=== PATIENT | female | born 1980 | race Two or more races ===

== ENCOUNTER 2016-12-30 19:21 | Emergency (ER) | payer OTHER ==
[~2016-12-30] VITALS: Ht 167.6 cm; Wt 84.4 kg
[~2016-12-30 19:21] MED LIST: ALPRAZOLAM0.25 MG ORAL; IBUPROFEN600 MG ORAL; KEFLEX500 MG ORAL; NITROFURANTOIN100 M2 ORAL; NKM; NORCO 5-325 TA1 EACH ORAL; NORCO1 EA ORAL; SERTRALINE HCL50 MG ORAL; VISTARIL25 M1 PO; WELLBUTRIN75 MG ORAL; XANAX0.25 MG ORAL
[2016-12-30] MEDS ORDERED: Ketorolac 30mg Inj IV ONE (20:15)
--- NOTE | 2016-12-30 20:51 | Emergency Room Report ---
History of Present Illness General Chief Complaint: Back Pain-No Injury Source: Patient Present Illness HPI Patient complains of upper back and chest pain that began on Tuesday. It's been intermittent. And positional. She believes it may have started when she pulled a pillow away from her daughter. She is taking many medications in the one that helped her the most was Advil. She felt worse with Tramadol. She is also complaining about pain in her left heel that radiates up into her calf. In addition to that she's complaining about left ear pain. The rest of her family and does have earaches and ear infections. She has a sore throat. The patient suffers from fibromyalgia. No dysuria. LNMP normal. No dyspnea. She's felt feverish, but no documented fever. No rashes. Allergies: Coded Allergies: No Known Allergies (Unverified , 10/15/12) Patient History Past Medical History: see triage record Social History: Denies: smoking Social History Narrative with daughter Last Menstrual Period: Dec Reviewed Nursing Documentation: PMH: Agreed, PSxH: Agreed Nursing Documentation-PMH Hx Cardiac Problems: No - fibromyalgia Hx Pacemaker: No Hx Asthma: No Hx COPD: No Hx Diabetes: No Hx Cancer: No Hx Gastrointestinal Problems: Yes - Gall stones Hx Dialysis: No Hx Cerebrovascular Accident: No Hx Seizures: No Review of Systems All Other Systems: negative except mentioned in HPI Physical Exam Vital Signs Date Time Temp Pulse Resp B/P Pulse Ox O2 Delivery O2 Flow Rate FiO2 12/30/16 19:25 98.4 70 16 120/79 99 Room Air Sp02 EP Interpretation: reviewed, normal General Appearance: well appearing, no apparent distress, GCS 15 Head: normocephalic Eyes: bilateral eye PERRL, bilateral eye normal inspection ENT: normal pharynx, TMs + canals normal, moist mucus membranes Neck: full range of motion, supple, no meningismus Respiratory: lungs clear, normal breath sounds, other - some chest wall tenderness Cardiovascular #1: regular rate, rhythm, no edema, no murmur Cardiovascular #2: 2+ radial (R) Gastrointestinal: normal inspection, normal bowel sounds, non tender, no mass, non-distended Musculoskeletal: back normal, gait/station normal, normal range of motion, no calf tenderness, Florence's Sign negative Neurologic: alert, oriented x3, grossly normal Psychiatric: mood/affect normal Skin: normal inspection, warm/dry Medical Decision Making Diagnostic Impression: Primary Impression: Chest pain Qualified Codes: R07.9 - Chest pain, unspecified Additional Impressions: Fibromyalgia Viral syndrome ER Course Patient presents with chest pain and URI sy. DDx: viral syndrome, pleurisy, costochondritis, PE, bacterial infection, exacerbation of fibromyalgia amongst others. Evaluation with labs, EKG, CXR. Treatment with toradol. Vital signs against PE. Labs remarkable for normal WBC and negative troponin. CXR no CP disease. EKG normal. No evidence of bacterial infection. Improved with treatment. Patient stable for outpatient observation and treatment. Laboratory Tests Test 12/30/16 19:35 12/30/16 20:30 Urine HCG, Qualitative Negative White Blood Count 7.9 K/UL (4.8-10.8) Red Blood Count 3.97 M/UL (4.20-5.40) L Hemoglobin 11.8 G/DL (12.0-16.0) L Hematocrit 37.3 % (37.0-47.0) Mean Corpuscular Volume 94 FL (80-99) Mean Corpuscular Hemoglobin 29.7 PG (27.0-31.0) Mean Corpuscular Hemoglobin Concent 31.7 G/DL (32.0-36.0) L Red Cell Distribution Width 13.2 % (11.6-14.8) Platelet Count 204 K/UL (150-450) Mean Platelet Volume 6.9 FL (6.5-10.1) Neutrophils (%) (Auto) 41.1 % (45.0-75.0) L Lymphocytes (%) (Auto) 46.3 % (20.0-45.0) H Monocytes (%) (Auto) 9.0 % (1.0-10.0) Eosinophils (%) (Auto) 2.1 % (0.0-3.0) Basophils (%) (Auto) 1.5 % (0.0-2.0) Sodium Level 140 mEQ/L (135-145) Potassium Level 3.8 mEQ/L (3.4-4.9) Chloride Level 101 mEQ/L (98-107) Carbon Dioxide Level 26 mEQ/L (20-30) Anion Gap 13 (5-15) Blood Urea Nitrogen 13 mg/dL (7-23) Creatinine 0.8 mg/dL (0.5-0.9) Estimate Glomerular Filtration Rate > 60 mL/min (>60) Glucose Level 73 mg/dL (74-106) L Calcium Level 9.1 mg/dL (8.6-10.2) Total Bilirubin < 0.2 mg/dL (0.0-1.2) Aspartate Amino Transferase (AST) 20 U/L (5-40) Alanine Aminotransferase (ALT) 20 U/L (3-33) Alkaline Phosphatase 75 U/L (35-104) Total Creatine Kinase 107 U/L (26-140) Troponin I < 0.30 ng/mL (<=0.30) Total Protein 7.0 g/dL (6.6-8.7) Albumin 4.2 g/dL (3.5-5.2) Globulin 2.8 g/dL Albumin/Globulin Ratio 1.5 (1.0-2.7) EKG Diagnostic Results Rate: normal Rhythm: NSR ST Segments: no acute changes Rhythm Strip Diag. Results EP Interpretation: yes Rhythm: NSR, no PVC's, no ectopy Chest X-Ray Diagnostic Results EP Interpretation: Yes Findings: no consolidation, no effusion, no pneumothorax, no acute cardiopulmonary disease Number of Views: 2 Last Vital Signs Date Time Temp Pulse Resp B/P Pulse Ox O2 Delivery O2 Flow Rate FiO2 12/30/16 22:35 68 15 109/66 96 Room Air 12/30/16 21:17 98.4 Status: improved Disposition: HOME, SELF-CARE Condition: Improved Scripts Famotidine (PEPCID) 20 Mg Tablet 20 MG ORAL DAILY, #20 TAB 0 Refills Prov: Lemuel Bryant M.D. 12/30/16 Ibuprofen* (MOTRIN*) 600 Mg Tablet 600 MG ORAL Q6H Y for For Pain, #14 TAB Prov: Lemuel Bryant M.D. 12/30/16 Referrals: [facility],REFERRING (PCP) Lemuel Bryant M.D. Dec 30, 2016 20:51
[2016-12-30 21:15] LABS: BASOPHILS % (AUTO) 1.5 % (0.0-2.0); EOSINOPHILS % (AUTO) 2.1 % (0.0-3.0); LYMPHOCYTES % (AUTO) 46.3 % (20.0-45.0); MEAN CORPUSCULAR HEMOGLOBIN 29.7 PG (27.0-31.0); MEAN CORPUSCULAR HGB CONC 31.7 G/DL (32.0-36.0); MEAN CORPUSCULAR VOLUME 94 FL (80-99); MEAN PLATELET VOLUME 6.9 FL (6.5-10.1); NEUTROPHILS % (AUTO) 41.1 % (45.0-75.0); PLATELET COUNT 204 K/UL (150-450); RED BLOOD COUNT 3.97 M/UL (4.20-5.40); RED CELL DISTRIBUTION WIDTH 13.2 % (11.6-14.8); WHITE BLOOD COUNT 7.9 K/UL (4.8-10.8)
[2016-12-30 21:28] LABS: TROPONIN I < 0.30 ng/mL (<=0.30)
[2016-12-30 21:30] LABS: ALANINE AMINOTRANSFERASE 20 U/L (3-33); ALBUMIN/GLOBULIN RATIO 1.5 (1.0-2.7); ANION GAP 13 (5-15); ASPARTATE AMINO TRANSFERASE 20 U/L (5-40); CALCIUM 9.1 mg/dL (8.6-10.2); CARBON DIOXIDE 26 mEQ/L (20-30); CHLORIDE 101 mEQ/L (98-107); CREATININE 0.8 mg/dL (0.5-0.9); GLOMERULAR FILTRATION RATE > 60 mL/min (>60); HEMOLYSIS 4; POTASSIUM 3.8 mEQ/L (3.4-4.9); SODIUM 140 mEQ/L (135-145)
[2016-12-30 21:31] VITALS: BP 101/49
[2016-12-30] MEDS ORDERED: IBUPROFEN600 MG ORAL (22:22)
[2016-12-30] MEDS ORDERED: PEPCID20 MG ORAL (22:22)
[2016-12-30 22:35] VITALS: BP 109/66
[2016-12-31 03:14] LABS: APPEARANCE,URINE CLEAR; KETONES,URINE NEGATIVE (NEGATIVE); LEUKOCYTE ESTERASE ,URINE NEGATIVE (NEGATIVE); NITRITE,URINE NEGATIVE (NEGATIVE); PH,URINE 7 (4.5-8.0); PROTEIN,URINE NEGATIVE (NEGATIVE); UROBILINOGEN,URINE NORMAL MG/DL (0.0-1.0)
--- NOTE | 2016-12-31 12:09 | Diagnostic Imaging Report ---
Indication: Chest pain Technique: PA and lateral views of the chest. Findings: Comparison: 11/14/15 The bones and extra pulmonary soft tissues, cardiomediastinal silhouette, pulmonary vasculature and parenchyma, and pleural surfaces remain unremarkable. IMPRESSION: Negative PA and lateral chest radiographs , unchanged
--- NOTE | 2016-12-31 13:47 | Cardiology Report ---
APPROVED REPORT EKG Measurement Heart [id number] CT [id number] [id number] Normal sinus rhythm Normal ECG
== END 2016-12-30 22:35 | disposition home or self-care (01) ==
LOC: EMR 20:46
DX: R07.9 Chest pain, unspecified (principal); M79.7 Fibromyalgia; B34.9 Viral infection, unspecified
CPT/HCPCS: 36415; 71020; 80053; 81003; 81025; 82550; 84484; 85025; 93005; 96360; 96374; 99284; J1885

== ENCOUNTER 2017-04-16 11:04 | Emergency (ER) | payer OTHER ==
[~2017-04-16] VITALS: Ht 167.6 cm; Wt 83.9 kg
[~2017-04-16 11:04] MED LIST changes: +PEPCID20 MG ORAL
[2017-04-16 11:33] VITALS: BP 116/77
[2017-04-16] MEDS ORDERED: ATIVAN0.5 MG ORAL (12:39)
[2017-04-16 12:48] VITALS: BP 116/77
--- NOTE | 2017-04-16 13:42 | Emergency Room Report ---
History of Present Illness General Chief Complaint: General Complaint Present Illness HPI Patient is a 36-year-old female presented after increased anxiety as well as headache. The patient reportedly had been using amphetamine approximately 2 days prior to arrival. Patient had gradual onset of headache. She reported having some chest discomfort. She has not been vomiting. She had similar symptoms in the past. She reported having tightness in her chest which did not radiate. She previous history of anxiety Allergies: Coded Allergies: No Known Allergies (Unverified , 10/15/12) Patient History Past Medical History: see triage record Reviewed Nursing Documentation: PMH: Agreed, PSxH: Agreed Nursing Documentation-PMH Hx Cardiac Problems: No - fibromyalgia Hx Pacemaker: No Hx Asthma: No Hx COPD: No Hx Diabetes: No Hx Cancer: No Hx Gastrointestinal Problems: Yes - Gall stones Hx Dialysis: No Hx Cerebrovascular Accident: No Hx Seizures: No Review of Systems All Other Systems: negative except mentioned in HPI Physical Exam Vital Signs Date Time Temp Pulse Resp B/P Pulse Ox O2 Delivery O2 Flow Rate FiO2 04/16/17 11:11 98.2 92 20 116/77 98 Room Air Sp02 EP Interpretation: reviewed, normal General Appearance: normal inspection, well appearing, no apparent distress, alert, GCS 15, non-toxic Head: atraumatic ENT: normal ENT inspection, hearing grossly normal, normal voice Neck: normal inspection, full range of motion, supple, no bony tend Respiratory: normal inspection, lungs clear, normal breath sounds, no respiratory distress, no retraction, no wheezing Cardiovascular #1: regular rate, rhythm, no edema Gastrointestinal: normal inspection, normal bowel sounds, non tender, soft, no guarding, no hernia Genitourinary: no CVA tenderness Musculoskeletal: normal inspection, back normal, normal range of motion Neurologic: normal inspection, alert, responsive, speech normal Psychiatric: normal inspection, judgement/insight normal, mood/affect normal Skin: normal inspection, normal color, no rash Medical Decision Making Diagnostic Impression: Primary Impression: Substance abuse Additional Impression: Anxiety ER Course Patient presented for anxiety The differential diagnosis included was not limited to arrhythmia, thyroid storm, sepsis, anemia, myocardial infarction, alcohol withdrawal, stimulant abuse, caffeine overdose among others. EKG interpreted by me showed normal sinus rhythm with a rate of [address] or T wave changes. The patient was given medications for headache. The patient did not appear to have any focal neurologic changes requiring head CT at this time. Patient has previous had negative head CT his for headaches in the past. The patient is advised to follow up with primary care doctor in 1-2 days. Patient is advised to return if any worsening condition or if any changes in status that are concerning. EKG Diagnostic Results Rate: normal Rhythm: NSR ST Segments: no acute changes ASA given to the pt in ED: No Rhythm Strip Diag. Results EP Interpretation: yes Rhythm: NSR, no PVC's, no ectopy Chest X-Ray Diagnostic Results Chest X-Ray Ordered: No Last Vital Signs Date Time Temp Pulse Resp B/P Pulse Ox O2 Delivery O2 Flow Rate FiO2 04/16/17 12:48 98.2 20 116/77 98 Room Air 04/16/17 11:11 92 Status: improved Disposition: HOME, SELF-CARE Condition: Stable Scripts Lorazepam* (ATIVAN*) 0.5 Mg Tablet 0.5 MG ORAL THREE TIMES A DAY, #14 TAB Prov: Yehuda Gaspar 04/16/17 Patient Instructions: Migraine Headache, [id number] Yehuda Gaspar Apr 16, 2017 13:42
[2017-04-16] MEDS ORDERED: Metoclopramide 10mg/2ml Inj IM SCH (14:00)
[2017-04-17] MEDS ORDERED: PHENAZOPYRIDIN200 MG ORAL (13:51)
[2017-04-17] MEDS ORDERED: ZOFRAN ODT4 MG ORAL (13:51)
[2017-04-17] MEDS ORDERED: NITROFURANTOIN100 M2 ORAL (13:51)
== END 2017-04-16 12:48 | disposition home or self-care (01) ==
LOC: EMR 11:27
DX: F15.10 Other stimulant abuse, uncomplicated (principal); F41.9 Anxiety disorder, unspecified; R51 Headache
CPT/HCPCS: 81025; 93005; 96372; 99283; J2765

== ENCOUNTER 2017-04-17 12:21 | Emergency (ER) | payer OTHER ==
[~2017-04-17] VITALS: Ht 167.6 cm; Wt 68.0 kg
[~2017-04-17 12:21] MED LIST changes: +ATIVAN0.5 MG ORAL
[2017-04-17 12:54] VITALS: BP 110/60
[2017-04-17 13:15] LABS: APPEARANCE,URINE SLIGHTLY CLOUDY; KETONES,URINE NEGATIVE (NEGATIVE); LEUKOCYTE ESTERASE ,URINE 3+ (NEGATIVE); NITRITE,URINE NEGATIVE (NEGATIVE); PH,URINE 6 (4.5-8.0); PROTEIN,URINE 2+ (NEGATIVE); UROBILINOGEN,URINE 1 MG/DL (0.0-1.0)
[2017-04-17] MEDS ORDERED: Metoclopramide 10mg/2ml Inj IM ONE (13:15)
[2017-04-17] MEDS ORDERED: Ketorolac 60mg Inj IM ONE (13:15)
--- NOTE | 2017-04-17 13:17 | Emergency Room Report ---
History of Present Illness General Chief Complaint: Headache Present Illness HPI 36-year-old female presents emergency department complaining of 8/10 in severity intermittent headache x2 days. Patient reports progressive onset with nausea and one episode of vomiting. Patient reports history of migraines and previously was on Topamax and was under the care of neurologist performed had imaging which was negative according to patient. Patient states that her headache travels down the left side of the neck into the shoulder. Patient reports tightness and tenderness upon palpation. She also reports episode of burning urination this a.m. denies hematuria, or low back pain. Patient denies fever she reports chills. Patient states that she has taken Tylenol twice with minimal relief. Patient reports recent use of methamphetamine 2 days ago. Patient denies dizziness or visual changes. Denies CP, Palpitations, LOC, AMS, dizziness, Changes in Vision, Sensation, paresthesias, or a sudden severe headache. Allergies: Coded Allergies: No Known Allergies (Unverified , 10/15/12) Patient History Past Medical History: see triage record Past Surgical History: none Pertinent Family History: none Social History: Reports: drug use - Methamphetamine use Now: No Immunizations: UTD Reviewed Nursing Documentation: PMH: Agreed Nursing Documentation-PMH Hx Cardiac Problems: No - fibromyalgia Hx Pacemaker: No Hx Asthma: No Hx COPD: No Hx Diabetes: No Hx Cancer: No Hx Gastrointestinal Problems: Yes - Gall stones Hx Dialysis: No Hx Cerebrovascular Accident: No Hx Seizures: No Review of Systems All Other Systems: negative except mentioned in HPI Physical Exam Vital Signs Date Time Temp Pulse Resp B/P Pulse Ox O2 Delivery O2 Flow Rate FiO2 04/17/17 12:45 98.1 78 16 110/60 98 Room Air Sp02 EP Interpretation: reviewed, normal General Appearance: no apparent distress, alert, GCS 15, non-toxic Head: normocephalic, atraumatic Eyes: bilateral eye PERRL, bilateral eye normal inspection ENT: hearing grossly normal, normal pharynx, no angioedema, normal voice Neck: full range of motion, no meningismus, no bony tend, supple/symm/no masses Respiratory: lungs clear, normal breath sounds, speaking full sentences Cardiovascular #1: regular rate, rhythm, no edema Gastrointestinal: normal bowel sounds, non tender, soft, no guarding, no rebound Rectal: deferred Genitourinary: normal inspection, no CVA tenderness Musculoskeletal: back normal, gait/station normal, normal range of motion, tender - left lateral neck TTP, FROM Neurologic: alert, oriented x3, responsive, motor strength/tone normal, sensory intact, cerebellar normal, normal gait, speech normal, no pronator, other - equal document reviewer strength, no facial droop, no motor weakness Psychiatric: judgement/insight normal, memory normal, mood/affect normal Skin: normal color, no rash, warm/dry, well hydrated Lymphatic: no adenopathy Medical Decision Making PA Attestation Dr. danielle is my supervising Physician whom patient management has been discussed with. Diagnostic Impression: Primary Impression: UTI (urinary tract infection) Qualified Codes: N30.01 - Acute cystitis with hematuria ER Course Pt. presents to the ED c/o headache x 2 days, with one episode of dysuria this am. pt. also reports nausea and one episode of vomiting. pt. has hx of migraines and was previously on topamax. Described as dull constant in nature, with progressive onset 8/10 in severity. Ddx considered but are not limited to migraine, SAH, Psedudo motor Cerebri, Mass lesion, Cluster ESTEBAN, Tension ESTEBAN, Post lumbar puncture ESTEBAN, UTI Vital signs: are WNL, pt. is afebrile H&PE are most consistent with migraine headache, no focal neurological deficit, no evidence to suggest meningitis at this time. ORDERS: - UA: elevated leukocytes, WBC's and few bacteria- consistent with UTI -Hcg:Negative ED INTERVENTIONS: - Reglan IM -IM Toradol DISCHARGE: At this time pt. is stable for d/c to home. Will provide printed patient care instructions, and any necessary prescriptions. Care plan and follow up instructions have been discussed with the patient prior to discharge. Labs Test 04/17/17 12:43 Urine Color Yellow Urine Appearance Slightly cloudy Urine pH 6 (4.5-8.0) Urine Specific [place] 1.020 (1.005-1.035) Urine Protein 2+ (NEGATIVE) Urine Glucose (UA) Negative (NEGATIVE) Urine Ketones Negative (NEGATIVE) Urine Occult Blood 2+ (NEGATIVE) Urine Nitrite Negative (NEGATIVE) Urine Bilirubin Negative (NEGATIVE) Urine Urobilinogen 1 MG/DL (0.0-1.0) Urine Leukocyte Esterase 3+ (NEGATIVE) Urine RBC 5-10 /HPF (0 - 2) Urine WBC 30-40 /HPF (0 - 2) Urine Squamous Epithelial Cells Few /LPF (NONE/OCC) Urine Bacteria Few /HPF (NONE) Urine Mucus Few /LPF (NONE/OCC) Urine HCG, Qualitative Negative Last Vital Signs Date Time Temp Pulse Resp B/P Pulse Ox O2 Delivery O2 Flow Rate FiO2 04/17/17 12:54 98.1 16 110/60 98 Room Air 04/17/17 12:45 78 Disposition: HOME, SELF-CARE Condition: Stable Scripts Ondansetron Odt* (ZOFRAN ODT*) 4 Mg Tab.rapdis 4 MG ORAL Q6H Y for Nausea & Vomiting, #10 TAB Prov: Beverly Up 04/17/17 Phenazopyridine Hcl* (PYRIDIUM*) 200 Mg Tablet 200 MG ORAL THREE TIMES A DAY for 3 Days, #9 TAB 0 Refills Prov: Beverly Up 04/17/17 Nitrofurantoin Monohyd/M-Cryst* (MACROBID 100 MG*) 100 Mg Capsule 100 MG ORAL EVERY 12 HOURS for 5 Days, #10 CAP Prov: Beverly Up 04/17/17 Referrals: [facility],REFERRING (PCP) Patient Instructions: Urinary Tract Infection, [id number] Additional Instructions: Take medications as directed. Follow up with PCP in 3 days. Recommend Neurological evaluation if headache symptoms return. Return sooner to ED if new symptoms occur, or current symptoms become worse. - Please note that this Emergency Department Report was dictated using [employer] reporter technology software, occasionally this can lead to erroneous entry secondary to interpretation by the dictation equipment. Beverly Up Apr 17, 2017 13:17
[2017-04-17 13:25] LABS: BACTERIA,URINE FEW /HPF; MUCUS,URINE FEW /LPF (NONE/OCC); SQUAMOUS EPITHELIAL CELL,UR FEW /LPF (NONE/OCC); WBC,URINE 30-40 /HPF (0 - 2)
[2017-04-17] MEDS ORDERED: ZOFRAN ODT4 MG ORAL (13:51)
[2017-04-17] MEDS ORDERED: PHENAZOPYRIDIN200 MG ORAL (13:51)
[2017-04-17] MEDS ORDERED: NITROFURANTOIN100 M2 ORAL (13:51)
[2017-04-17 14:14] VITALS: BP 109/60
[2017-04-17 14:15] VITALS: BP 110/60
== END 2017-04-17 14:18 | disposition home or self-care (01) ==
LOC: EMR 13:00
DX: N39.0 Urinary tract infection, site not specified (principal); R51 Headache; R11.2 Nausea with vomiting, unspecified; Z86.69 Personal history of other diseases of the nervous system and sense organs; F15.90 Other stimulant use, unspecified, uncomplicated
CPT/HCPCS: 81003; 81025; 87086; 87181; 96372; 99284; J2765

== ENCOUNTER 2017-07-07 10:55 | Emergency (ER) | payer OTHER ==
[~2017-07-07] VITALS: Ht 165.1 cm; Wt 83.5 kg
[~2017-07-07 10:55] MED LIST changes: +PHENAZOPYRIDIN200 MG ORAL; +ZOFRAN ODT4 MG ORAL
[2017-07-07 12:15] VITALS: BP 106/72
--- NOTE | 2017-07-08 06:57 | Emergency Room Report ---
History of Present Illness General Chief Complaint: Pain Source: Patient Present Illness HPI 28-year-old female with past medical history of fibromyalgia presenting with one day of left wrist / elbow numbness and tingling. States that she has numbness and tingling after every time that she bends elbow and rest it on a hard surface. Numbness and tingling loss for about 10-15 minutes. Patient denies any hand or wrist weakness. Patient states that this has happened in the past. Patient denies any headache neck pain blurry vision nausea or vomiting. Patient denies any other trauma. Allergies: Coded Allergies: No Known Allergies (Unverified , 10/15/12) Patient History Past Medical History: see triage record Past Surgical History: none Pertinent Family History: none Last Menstrual Period: 06/26/17 Now: No Reviewed Nursing Documentation: PMH: Agreed, PSxH: Agreed Nursing Documentation-PMH Past Medical History: No History, Except For Hx Cardiac Problems: No - fibromyalgia Hx Pacemaker: No Hx Asthma: No Hx COPD: No Hx Diabetes: No Hx Cancer: No Hx Gastrointestinal Problems: Yes - Gall stones Hx Dialysis: No Hx Cerebrovascular Accident: No Hx Seizures: No Review of Systems All Other Systems: negative except mentioned in HPI Physical Exam Vital Signs Date Time Temp Pulse Resp B/P (MAP) Pulse Ox O2 Delivery O2 Flow Rate FiO2 07/07/17 11:08 98.2 85 16 104/76 98 Room Air Sp02 EP Interpretation: reviewed, normal General Appearance: normal inspection, well appearing, no apparent distress, alert, GCS 15, non-toxic Head: normocephalic, atraumatic Eyes: bilateral eye normal inspection, bilateral eye PERRL, bilateral eye EOMI ENT: normal ENT inspection, normal pharynx, normal voice, moist mucus membranes Neck: normal inspection, full range of motion, supple Respiratory: normal inspection, lungs clear, normal breath sounds, no respiratory distress, no retraction, no wheezing, speaking full sentences, chest symmetrical Cardiovascular #1: normal inspection, regular rate, rhythm, no edema, normal capillary refill Cardiovascular #2: 2+ radial (R), 2+ radial (L) Gastrointestinal: normal inspection, non tender, soft, non-distended, no guarding Musculoskeletal: normal inspection, back normal, normal range of motion, non- tender Neurologic: normal inspection, alert, oriented x3, responsive, field sales manager III-XII nml as tested, motor strength/tone normal, sensory intact, normal gait, speech normal, other - Motor strength is 5 out of 5 all extremities including the left wrist hand and elbow. Patient is able to oppose thumb to all fingers without difficulty. Sensory intact Psychiatric: normal inspection, judgement/insight normal, memory normal Skin: normal inspection, normal color, no rash, warm/dry, well hydrated, normal turgor Medical Decision Making Diagnostic Impression: Primary Impression: Paresthesia and pain of left extremity ER Course 36 yo female with fibromyalgia presenting with one day of left wrist forearm and elbow numbness and tingling DDX: Benign paresthesias, likely secondary to compression of nerves with prolonged position Versus fibromyalgia Not concerned with any intracranial pathology given history and physical exam, and absence of neurological findings Plan: Reassurance ER course: Patient has remained stable during ED stay. Disposition: Patient is to be discharged to home. Patient is instructed to follow up with their primary care doctor within 5 days. Strict return precautions discussed with patient such as fever, chills, worsening/severe pain, nausea, vomiting, headache, which may indicate severe illness. Patient verbalizes understanding and agrees with plan. Please note that this Emergency Department Report was dictated using [employer] dra[employer] technology software, occasionally this can lead to erroneous entry secondary to interpretation by the dictation equipment Last Vital Signs Date Time Temp Pulse Resp B/P (MAP) Pulse Ox O2 Delivery O2 Flow Rate FiO2 07/07/17 12:15 98.7 71 16 106/72 100 Room Air Disposition: HOME, SELF-CARE Condition: Stable Referrals: [facility],REFERRING (PCP) Additional Instructions: PLEASE FOLLOW UP WITH YOUR PRIMARY CARE DOCTOR WITHIN 1 WEEK Marvin Berg M.D. Jul 08, 2017 06:57
== END 2017-07-07 12:15 | disposition home or self-care (01) ==
LOC: EMR 11:57
DX: R20.2 Paresthesia of skin (principal); M79.7 Fibromyalgia
CPT/HCPCS: 99282

== ENCOUNTER 2017-09-17 21:34 | Emergency (ER) | payer OTHER ==
[~2017-09-17] VITALS: Ht 165.1 cm; Wt 84.4 kg
[2017-09-17] MEDS ORDERED: CYCLOBENZAPRINE10 MG ORAL (21:46)
[2017-09-17] MEDS ORDERED: LYRICA75 M1 ORAL (21:46)
[2017-09-17] MEDS ORDERED: TRAMADOL HCL50 MG ORAL (21:46)
[2017-09-17 21:50] VITALS: BP 118/75
[2017-09-17] MEDS ORDERED: Lidocaine 2% Visc 15ml soln ORAL ONE (22:00)
[2017-09-17] MEDS ORDERED: Mylanta II UD 30ml ORAL ONE (22:00)
[2017-09-17] MEDS ORDERED: PRILOSEC OTC20 MG ORAL (22:39)
--- NOTE | 2017-09-17 22:39 | Emergency Room Report ---
History of Present Illness General Chief Complaint: Chest Pain Source: Patient Present Illness HPI Is a 36-year-old female with a history of heartburn/reflux. She complaining of chest pain. This occur when she was driving. She fell her grabbing burning sensation in the chest. Left her short of breath. Lasted a few minutes. It occurred again later on. No nausea no vomiting. Tender with palpation. No fever or chills but no radiation. No diaphoresis. Allergies: Coded Allergies: No Known Allergies (Unverified , 09/17/17) Patient History Past Medical History: see triage record, old chart reviewed Past Surgical History: none Pertinent Family History: none Social History: Denies: smoking Last Menstrual Period: aug 19 2017 Now: No Immunizations: other Reviewed Nursing Documentation: PMH: Agreed, PSxH: Agreed Nursing Documentation-PMH Hx Cardiac Problems: No - fibromyalgia Hx Pacemaker: No Hx Asthma: No Hx COPD: No Hx Diabetes: No Hx Cancer: No Hx Gastrointestinal Problems: Yes - Gall stones Hx Dialysis: No Hx Cerebrovascular Accident: No Hx Seizures: No Review of Systems Eye: Denies: eye pain, blurred vision ENT: Denies: ear pain, nose congestion, throat swelling Respiratory: Denies: cough, shortness of breath Cardiovascular: Reports: chest pain, Denies: palpitations Gastrointestinal: Denies: abdominal pain, diarrhea, nausea, vomiting Musculoskeletal: Denies: back pain, joint pain Skin: Denies: rash Neurological: Denies: headache, numbness Endocrine: Denies: increased thirst, increased urine Hematologic/Lymphatic: Denies: easy bruising All Other Systems: negative except mentioned in HPI Physical Exam Vital Signs Date Time Temp Pulse Resp B/P (MAP) Pulse Ox O2 Delivery O2 Flow Rate FiO2 09/17/17 21:42 98.2 70 16 128/89 99 Room Air vitals normal Sp02 EP Interpretation: reviewed, normal General Appearance: well appearing, no apparent distress, alert Head: normocephalic, atraumatic Eyes: bilateral eye PERRL, bilateral eye EOMI ENT: hearing grossly normal, normal pharynx Neck: full range of motion, supple, no meningismus Respiratory: chest non-tender, lungs clear, normal breath sounds Cardiovascular #1: regular rate, rhythm, no murmur Gastrointestinal: normal bowel sounds, non tender, no mass, no organomegaly, no bruit, non-distended Musculoskeletal: back normal, gait/station normal, normal range of motion Psychiatric: mood/affect normal Skin: warm/dry Medical Decision Making Diagnostic Impression: Primary Impression: Chest pain Qualified Codes: R07.9 - Chest pain, unspecified ER Course Patient with atypical chest pain. Unlikely cardiac in origin. EKG normal. Resolved with GI cocktail. We'll discharge home. This is most likely GI source rather than ACS, PE, dissection to name a few. EKG Diagnostic Results Rate: normal Rhythm: NSR ST Segments: no acute changes Rhythm Strip Diag. Results Rhythm Strip Time: 22:38 EP Interpretation: yes Rate: 67 Rhythm: NSR, no PVC's, no ectopy Last Vital Signs Date Time Temp Pulse Resp B/P (MAP) Pulse Ox O2 Delivery O2 Flow Rate FiO2 09/17/17 21:50 98.2 59 16 118/75 99 Room Air Status: improved Disposition: HOME, SELF-CARE Condition: Stable Scripts Omeprazole Magnesium (PRILOSEC OTC) 20 Mg Tablet. 20 MG ORAL DAILY, #30 TAB Prov: MY SINGH M.D. 09/17/17 Patient Instructions: Nonspecific Chest Pain Additional Instructions: Followup with your DrAyla in 7 days. Return if symptom worsen. MY SINGH M.D. Sep 17, 2017 22:39
[2017-09-17 22:49] VITALS: BP 115/69
[2017-09-17 22:50] VITALS: BP 115/69
--- NOTE | 2017-09-20 14:41 | Cardiology Report ---
APPROVED REPORT EKG Measurement Heart [id number] Normal sinus rhythm Normal ECG
== END 2017-09-17 22:50 | disposition home or self-care (01) ==
LOC: EMR 22:03
DX: R07.89 Other chest pain (principal)
CPT/HCPCS: 93005; 99283

== ENCOUNTER 2018-03-22 21:13 | Emergency (ER) | payer OTHER ==
[~2018-03-22] VITALS: Ht 167.6 cm; Wt 86.2 kg
[~2018-03-22 21:13] MED LIST changes: +CYCLOBENZAPRINE10 MG ORAL; +LYRICA75 M1 ORAL; +PRILOSEC OTC20 MG ORAL; +TRAMADOL HCL50 MG ORAL
--- NOTE | 2018-03-22 21:56 | Emergency Room Report ---
History of Present Illness General Chief Complaint: General Complaint Source: Patient Present Illness HPI Patient is a 37-year-old female who presented after increased lightheadedness. Patient reported having worsening symptoms with supine position. Patient denies any vertigo sensation. Patient prior history of fibromyalgia. The patient states that she takes omeprazole for acid reflux. She denies any recent trauma. She states that she been having the could sleep. She denies any recent drug use. Allergies: Coded Allergies: No Known Allergies (Unverified , 03/22/18) Patient History Past Medical History: see triage record Last Menstrual Period: now Reviewed Nursing Documentation: PMH: Agreed; PSxH: Agreed Nursing Documentation-PMH Past Medical History: No History, Except For Hx Cardiac Problems: No - fibromyalgia Hx Pacemaker: No Hx Asthma: No Hx COPD: No Hx Diabetes: No Hx Cancer: No Hx Gastrointestinal Problems: Yes - Gall stones Hx Dialysis: No Hx Cerebrovascular Accident: No Hx Seizures: No Review of Systems All Other Systems: negative except mentioned in HPI Physical Exam Vital Signs Date Time Temp Pulse Resp B/P (MAP) Pulse Ox O2 Delivery O2 Flow Rate FiO2 03/22/18 21:30 98.5 67 16 129/80 95 Room Air 98.4 Sp02 EP Interpretation: reviewed, normal General Appearance: normal inspection, well appearing, no apparent distress, alert, GCS 15 Head: atraumatic ENT: normal ENT inspection, hearing grossly normal, normal voice Neck: normal inspection, full range of motion, supple, no bony tend Respiratory: normal inspection, lungs clear, normal breath sounds, no respiratory distress, no retraction, no wheezing Cardiovascular #1: regular rate, rhythm, no edema Gastrointestinal: normal inspection, normal bowel sounds, non tender, soft, no guarding, no hernia Genitourinary: no CVA tenderness Musculoskeletal: normal inspection, back normal, normal range of motion Neurologic: normal inspection, alert, oriented x3, responsive, 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 Differential diagnosis included was not limited to anemia, urinary tract infection, electrolyte abnormality, hypothyroidism, myocardial infarction, myasthenia gravis, dehydration, among others. Because of complexity of patient's case laboratory testing and imaging studies were ordered.Laboratory studies are unremarkable. The patient was given IV fluids. The patient noted be normotensive in the emergency department. Is unclear was causing her dizziness and patient was advised to increase fluid intake.The patient is advised to follow up with primary care doctor in 1-2 days. Patient is advised to return if any worsening condition or if any changes in status that are concerning. This report is dictated with [employer] house officer software which may occasionally lead to discrepancies related to use of this software. Labs Test 03/22/18 21:39 03/22/18 22:06 Urine Color Pale yellow Urine Appearance Clear Urine pH 8 (4.5-8.0) Urine Specific [place] 1.010 (1.005-1.035) Urine Protein Negative (NEGATIVE) Urine Glucose (UA) Negative (NEGATIVE) Urine Ketones Negative (NEGATIVE) Urine Occult Blood 4+ (NEGATIVE) Urine Nitrite Negative (NEGATIVE) Urine Bilirubin Negative (NEGATIVE) Urine Urobilinogen Normal MG/DL (0.0-1.0) Urine Leukocyte Esterase Negative (NEGATIVE) Urine RBC 0-2 /HPF (0 - 2) Urine WBC 0-2 /HPF (0 - 2) Urine Squamous Epithelial Cells Moderate /LPF (NONE/OCC) Urine Bacteria None /HPF (NONE) Urine HCG, Qualitative Negative (NEGATIVE) White Blood Count 9.5 K/UL (4.8-10.8) Red Blood Count 4.49 M/UL (4.20-5.40) Hemoglobin 13.1 G/DL (12.0-16.0) Hematocrit 40.4 % (37.0-47.0) Mean Corpuscular Volume 90 FL (80-99) Mean Corpuscular Hemoglobin 29.1 PG (27.0-31.0) Mean Corpuscular Hemoglobin Concent 32.3 G/DL (32.0-36.0) Red Cell Distribution Width 14.3 % (11.6-14.8) Platelet Count 216 K/UL (150-450) Mean Platelet Volume 7.0 FL (6.5-10.1) Neutrophils (%) (Auto) 49.4 % (45.0-75.0) Lymphocytes (%) (Auto) 40.8 % (20.0-45.0) Monocytes (%) (Auto) 7.3 % (1.0-10.0) Eosinophils (%) (Auto) 1.5 % (0.0-3.0) Basophils (%) (Auto) 1.1 % (0.0-2.0) Sodium Level 140 MMOL/L (136-145) Potassium Level 3.7 MMOL/L (3.5-5.1) Chloride Level 107 MMOL/L (98-107) Carbon Dioxide Level 24 MMOL/L (21-32) Anion Gap 9 mmol/L (5-15) Blood Urea Nitrogen 10 mg/dL (7-18) Creatinine 0.9 MG/DL (0.55-1.30) Estimat Glomerular Filtration Rate > 60 mL/min (>60) Glucose Level 102 MG/DL (74-106) Calcium Level 9.0 MG/DL (8.5-10.1) Total Bilirubin 0.2 MG/DL (0.2-1.0) Aspartate Amino Transf (AST/SGOT) 23 U/L (15-37) Alanine Aminotransferase (ALT/SGPT) 23 U/L (12-78) Alkaline Phosphatase 87 U/L (46-116) Troponin I 0.000 ng/mL (0.000-0.056) Total Protein 8.1 G/DL (6.4-8.2) Albumin 3.8 G/DL (3.4-5.0) Globulin 4.3 g/dL Albumin/Globulin Ratio 0.9 (1.0-2.7) Last Vital Signs Date Time Temp Pulse Resp B/P (MAP) Pulse Ox O2 Delivery O2 Flow Rate FiO2 03/22/18 21:30 98.5 67 16 129/80 95 Room Air 98.4 Status: improved Disposition: HOME, SELF-CARE Condition: Stable Referrals: NON PHYSICIAN (PCP) Yehuda Gaspar MD March 22, 2018 21:56
[2018-03-22] MEDS ORDERED: Sodium Chloride 500ML 500 ML IV ONE (22:00)
[2018-03-22 22:15] VITALS: BP 129/80
[2018-03-22 22:20] LABS: BASOPHILS % (AUTO) 1.1 % (0.0-2.0); EOSINOPHILS % (AUTO) 1.5 % (0.0-3.0); HEMATOCRIT 40.4 % (37.0-47.0); HEMOGLOBIN 13.1 G/DL (12.0-16.0); LYMPHOCYTES % (AUTO) 40.8 % (20.0-45.0); MEAN CORPUSCULAR VOLUME 90 FL (80-99); MONOCYTES % (AUTO) 7.3 % (1.0-10.0); NEUTROPHILS % (AUTO) 49.4 % (45.0-75.0); PLATELET COUNT 216 K/UL (150-450); RED BLOOD COUNT 4.49 M/UL (4.20-5.40); RED CELL DISTRIBUTION WIDTH 14.3 % (11.6-14.8); WHITE BLOOD COUNT 9.5 K/UL (4.8-10.8)
[2018-03-22 22:25] LABS: APPEARANCE,URINE CLEAR; BILIRUBIN, URINE NEGATIVE (NEGATIVE); COLOR,URINE PALE YELLOW; GLUCOSE, URINE (UA) NEGATIVE (NEGATIVE); KETONES,URINE NEGATIVE (NEGATIVE); LEUKOCYTE ESTERASE ,URINE NEGATIVE (NEGATIVE); NITRITE,URINE NEGATIVE (NEGATIVE); PH,URINE 8 (4.5-8.0); PROTEIN,URINE NEGATIVE (NEGATIVE); UROBILINOGEN,URINE NORMAL MG/DL (0.0-1.0)
[2018-03-22 22:30] VITALS: BP_SYST 115; BP_SYST 124; BP_SYST 131; BP_DIAS 78; BP_DIAS 82; BP_DIAS 85
[2018-03-22 22:50] LABS: ANION GAP 9 mmol/L (5-15); BLOOD UREA NITROGEN 10 mg/dL (7-18); CARBON DIOXIDE 24 MMOL/L (21-32); CHLORIDE 107 MMOL/L (98-107); CREATININE 0.9 MG/DL (0.55-1.30); POTASSIUM 3.7 MMOL/L (3.5-5.1); SODIUM 140 MMOL/L (136-145)
[2018-03-22 22:55] LABS: ALANINE AMINOTRANSFERASE 23 U/L (12-78); ALBUMIN 3.8 G/DL (3.4-5.0); ALBUMIN/GLOBULIN RATIO 0.9 (1.0-2.7); ALKALINE PHOSPHATASE 87 U/L (46-116); ASPARTATE AMINO TRANSFERASE 23 U/L (15-37); BILIRUBIN,TOTAL 0.2 MG/DL (0.2-1.0)
[2018-03-23 00:30] VITALS: BP_SYST 108; BP_SYST 131; BP_DIAS 77; BP_DIAS 85
[2018-03-23 02:34] LABS: INR 0.9 (0.9-1.1)
--- NOTE | 2018-03-24 22:45 | Cardiology Report ---
APPROVED REPORT EKG Measurement Heart [id number] Normal sinus rhythm Normal ECG
== END 2018-03-23 00:30 | disposition home or self-care (01) ==
LOC: EMR 21:44
DX: R42 Dizziness and giddiness (principal); M79.7 Fibromyalgia; R53.1 Weakness
CPT/HCPCS: 36415; 80053; 81001; 81025; 84484; 85025; 85379; 85610; 85730; 93005; 96374; 96375; 99284; J2405; J7040

== ENCOUNTER 2018-08-30 16:41 | Emergency (ER) | payer OTHER ==
[~2018-08-30] VITALS: Ht 165.1 cm; Wt 87.5 kg
[2018-08-30] MEDS ORDERED: MOBIC7.5 MG ORAL (16:49)
[2018-08-30] MEDS ORDERED: VITAMIN D1000 UNI1 ORAL (16:49)
[2018-08-30 17:11] VITALS: BP 123/76
[2018-08-30 17:50] LABS: APPEARANCE,URINE CLEAR; BASOPHILS % (AUTO) 1.1 % (0.0-2.0); BILIRUBIN, URINE NEGATIVE (NEGATIVE); COLOR,URINE PALE YELLOW; EOSINOPHILS % (AUTO) 0.7 % (0.0-3.0); GLUCOSE, URINE (UA) NEGATIVE (NEGATIVE); HEMATOCRIT 35.2 % (37.0-47.0); HEMOGLOBIN 11.2 G/DL (12.0-16.0); KETONES,URINE NEGATIVE (NEGATIVE); LEUKOCYTE ESTERASE ,URINE NEGATIVE (NEGATIVE); LYMPHOCYTES % (AUTO) 29.5 % (20.0-45.0); MEAN CORPUSCULAR VOLUME 87 FL (80-99); MONOCYTES % (AUTO) 5.5 % (1.0-10.0); NEUTROPHILS % (AUTO) 63.3 % (45.0-75.0); NITRITE,URINE NEGATIVE (NEGATIVE); PH,URINE 8 (4.5-8.0); PLATELET COUNT 257 K/UL (150-450); PROTEIN,URINE NEGATIVE (NEGATIVE); RED BLOOD COUNT 4.04 M/UL (4.20-5.40); UROBILINOGEN,URINE NORMAL MG/DL (0.0-1.0); WHITE BLOOD COUNT 8.9 K/UL (4.8-10.8)
[2018-08-30 18:01] LABS: ANION GAP 7 mmol/L (5-15); BLOOD UREA NITROGEN 14 mg/dL (7-18); CALCIUM 8.9 MG/DL (8.5-10.1); CARBON DIOXIDE 27 MMOL/L (21-32); CHLORIDE 107 MMOL/L (98-107); CREATININE 0.9 MG/DL (0.55-1.30); POTASSIUM 4.1 MMOL/L (3.5-5.1); SODIUM 141 MMOL/L (136-145)
[2018-08-30 18:05] LABS: ALANINE AMINOTRANSFERASE 21 U/L (12-78); ALBUMIN 3.5 G/DL (3.4-5.0); ALBUMIN/GLOBULIN RATIO 0.9 (1.0-2.7); ALKALINE PHOSPHATASE 74 U/L (46-116); ASPARTATE AMINO TRANSFERASE 14 U/L (15-37); BILIRUBIN,TOTAL 0.1 MG/DL (0.2-1.0)
--- NOTE | 2018-08-30 18:27 | Emergency Room Report ---
History of Present Illness General Chief Complaint: Gastrointestinal Bleed Source: Patient Present Illness HPI Patient presents with one week of crampy abdominal pain. She was seen by her doctor and got a shot for us osteoarthritis of Solu-Medrol earlier in the week. Yesterday and this morning she is passing blood into the toilet bowl. The stools one time were more dark with that. She denies any diarrhea. The pain last night was severe but better today. Pain was 11/10 last night. Right now it's 4/10. She hasn't any fevers or chills. She's felt some nodules in her abdominal wall that when she squeezes and they're tender. She has a history of fiberomyalgia. She has had no nausea or vomiting. No straining with stool. She reads on the toilet. No rectal pain. Never with colonoscopy. No dysuria. She's never had crampy pain in her abdomen like this in the past. She likes eating beets and ate some this week. This sometimes turns her urine red. She has never had her stool turn red. Periods have been irregular. States not sexually active. She takes Mobic and Prilosec. She sometimes takes Lyrica for the fibromyalgia. She denies increased stress. H/O gall stones Seen March 2017 for amphetamine use and anxiety. Denies drug use at this time. Allergies: Coded Allergies: No Known Allergies (Unverified , 03/22/18) Patient History Past Medical History: see triage record Social History: Denies: smoking, drug use - prior Social History Narrative with daughter Last Menstrual Period: 08/23/18 Reviewed Nursing Documentation: PMH: Agreed; PSxH: Agreed Nursing Documentation-PMH Past Medical History: No History, Except For Hx Cardiac Problems: No - fibromyalgia, osteoarthritis Hx Pacemaker: No Hx Asthma: No Hx COPD: No Hx Diabetes: No Hx Cancer: No Hx Gastrointestinal Problems: No - hx of Gallstones Hx Dialysis: No History Of Psychiatric Problem: No - depression Hx Cerebrovascular Accident: No Hx Seizures: No Review of Systems All Other Systems: negative except mentioned in HPI Physical Exam Vital Signs Date Time Temp Pulse Resp B/P (MAP) Pulse Ox O2 Delivery O2 Flow Rate FiO2 08/30/18 16:45 98.1 65 18 123/76 97 Room Air Sp02 EP Interpretation: reviewed, normal General Appearance: well appearing, no apparent distress, GCS 15 Head: normocephalic Eyes: bilateral eye normal inspection ENT: moist mucus membranes Neck: supple Respiratory: lungs clear, normal breath sounds Cardiovascular #1: regular rate, rhythm Cardiovascular #2: 2+ radial (R) Gastrointestinal: normal inspection, normal bowel sounds, non tender, no mass, non-distended Rectal: heme negative stool - tested from sample given from home, other - no external hemorrhoids Genitourinary: no CVA tenderness Musculoskeletal: back normal, gait/station normal, normal range of motion Neurologic: alert, oriented x3, grossly normal Psychiatric: mood/affect normal - slightly anxious Skin: normal inspection, warm/dry Medical Decision Making Diagnostic Impression: Primary Impression: Internal hemorrhoid, bleeding Additional Impression: Abdominal pain Qualified Codes: R10.84 - Generalized abdominal pain ER Course Patient presents with 1 week of abdominal pain worse last night, now somewhat better with passing bright red blood. DDX: GItis, diverticulitis, hemorrhoid, exacerbation fibromyalgia, UTI, gastritis, pancreatitis, gall bladder disease amongst others. Evaluation with labs. Patient given tylenol and Pepcid. Normal WBC, H/H slightly low. CMP essentially normal. Lipase normal. UA clear. Preg neg. Pain improved with treatment. Discussed outpatient observation and treatment. Patient stable for outpatient observation and treatment. Laboratory Tests Test 08/30/18 17:42 White Blood Count 8.9 K/UL (4.8-10.8) Red Blood Count 4.04 M/UL (4.20-5.40) L Hemoglobin 11.2 G/DL (12.0-16.0) L Hematocrit 35.2 % (37.0-47.0) L Mean Corpuscular Volume 87 FL (80-99) Mean Corpuscular Hemoglobin 27.8 PG (27.0-31.0) Mean Corpuscular Hemoglobin Concent 32.0 G/DL (32.0-36.0) Red Cell Distribution Width 14.0 % (11.6-14.8) Platelet Count 257 K/UL (150-450) Mean Platelet Volume 6.5 FL (6.5-10.1) Neutrophils (%) (Auto) 63.3 % (45.0-75.0) Lymphocytes (%) (Auto) 29.5 % (20.0-45.0) Monocytes (%) (Auto) 5.5 % (1.0-10.0) Eosinophils (%) (Auto) 0.7 % (0.0-3.0) Basophils (%) (Auto) 1.1 % (0.0-2.0) Prothrombin Time 10.6 SEC (9.30-11.50) Prothrombin Time INR 1.0 (0.9-1.1) PTT 29 SEC (23-33) Urine Color Pale yellow Urine Appearance Clear Urine pH 8 (4.5-8.0) Urine Specific [place] 1.010 (1.005-1.035) Urine Protein Negative (NEGATIVE) Urine Glucose (UA) Negative (NEGATIVE) Urine Ketones Negative (NEGATIVE) Urine Blood Negative (NEGATIVE) Urine Nitrite Negative (NEGATIVE) Urine Bilirubin Negative (NEGATIVE) Urine Urobilinogen Normal MG/DL (0.0-1.0) Urine Leukocyte Esterase Negative (NEGATIVE) Urine HCG, Qualitative Negative (NEGATIVE) Sodium Level 141 MMOL/L (136-145) Potassium Level 4.1 MMOL/L (3.5-5.1) Chloride Level 107 MMOL/L (98-107) Carbon Dioxide Level 27 MMOL/L (21-32) Anion Gap 7 mmol/L (5-15) Blood Urea Nitrogen 14 mg/dL (7-18) Creatinine 0.9 MG/DL (0.55-1.30) Estimate Glomerular Filtration Rate > 60 mL/min (>60) Glucose Level 113 MG/DL (74-106) H Calcium Level 8.9 MG/DL (8.5-10.1) Total Bilirubin 0.1 MG/DL (0.2-1.0) L Aspartate Amino Transferase (AST) 14 U/L (15-37) L Alanine Aminotransferase (ALT) 21 U/L (12-78) Alkaline Phosphatase 74 U/L (46-116) Total Protein 7.5 G/DL (6.4-8.2) Albumin 3.5 G/DL (3.4-5.0) Globulin 4.0 g/dL Albumin/Globulin Ratio 0.9 (1.0-2.7) L Lipase 259 U/L (73-393) Last Vital Signs Date Time Temp Pulse Resp B/P (MAP) Pulse Ox O2 Delivery O2 Flow Rate FiO2 08/30/18 19:03 98.1 18 123/76 97 Room Air 10/31/18 18:35 61 Status: improved Disposition: HOME, SELF-CARE Condition: Improved Scripts Hydrocortisone Acetate* (ANUSOL-HC*) 25 Mg Supp.rect 1 SUPP RECTAL TWICE A DAY, #12 SUPP Prov: Lemuel Bryant MD 08/30/18 Acetaminophen (Tylenol) 325 Mg Tablet 650 MG ORAL Q6H PRN for Prn Pain/Headache/Temp > 101, #20 TAB 0 Refills Prov: Lemuel Bryant MD 08/30/18 Referrals: [facility],REFERRING (PCP) Lemuel Bryant MD Aug 30, 2018 18:27
[2018-08-30] MEDS ORDERED: ANUSOL-HC25 MG RECTAL (18:30)
[2018-08-30] MEDS ORDERED: TYLENOL325 MG ORAL (18:30)
[2018-08-30 18:35] VITALS: BP 115/74
[2018-08-30 19:01] VITALS: BP 123/76
[2018-08-30 19:03] VITALS: BP 123/76
== END 2018-08-30 19:04 | disposition home or self-care (01) ==
LOC: EMR 17:41
DX: K64.8 Other hemorrhoids (principal); R10.9 Unspecified abdominal pain; M79.7 Fibromyalgia; M19.90 Unspecified osteoarthritis, unspecified site
CPT/HCPCS: 36415; 80053; 81003; 81025; 83690; 85025; 85610; 85730; 96374; 99284; S0028

== ENCOUNTER 2018-10-16 13:01 | Emergency (ER) | payer OTHER ==
[~2018-10-16] VITALS: Ht 165.1 cm; Wt 86.2 kg
[~2018-10-16 13:01] MED LIST changes: +ANUSOL-HC25 MG RECTAL; +MOBIC7.5 MG ORAL; +TYLENOL325 MG ORAL; +VITAMIN D1000 UNI1 ORAL
[2018-10-16] MEDS ORDERED: DiphenhydrAMINE 50mg/ml Inj IVP ONE (13:45)
[2018-10-16 14:30] LABS: BASOPHILS % (AUTO) 0.9 % (0.0-2.0); EOSINOPHILS % (AUTO) 0.8 % (0.0-3.0); HEMATOCRIT 28.7 % (37.0-47.0); HEMOGLOBIN 9.1 G/DL (12.0-16.0); LYMPHOCYTES % (AUTO) 41.7 % (20.0-45.0); MEAN CORPUSCULAR VOLUME 83 FL (80-99); MONOCYTES % (AUTO) 5.2 % (1.0-10.0); NEUTROPHILS % (AUTO) 51.4 % (45.0-75.0); PLATELET COUNT 404 K/UL (150-450); RED BLOOD COUNT 3.47 M/UL (4.20-5.40); RED CELL DISTRIBUTION WIDTH 15.4 % (11.6-14.8); WHITE BLOOD COUNT 8.9 K/UL (4.8-10.8)
[2018-10-16 14:35] LABS: ANION GAP 10 mmol/L (5-15); BLOOD UREA NITROGEN 10 mg/dL (7-18); CALCIUM 9.4 MG/DL (8.5-10.1); CARBON DIOXIDE 26 MMOL/L (21-32); CHLORIDE 103 MMOL/L (98-107); CREATININE 0.9 MG/DL (0.55-1.30); POTASSIUM 3.8 MMOL/L (3.5-5.1); SODIUM 138 MMOL/L (136-145)
[2018-10-16 14:37] LABS: ALANINE AMINOTRANSFERASE 23 U/L (12-78); ALBUMIN 3.7 G/DL (3.4-5.0); ALBUMIN/GLOBULIN RATIO 0.7 (1.0-2.7); ALKALINE PHOSPHATASE 70 U/L (46-116); ASPARTATE AMINO TRANSFERASE 25 U/L (15-37); BILIRUBIN,TOTAL 0.3 MG/DL (0.2-1.0); CREATINE KINASE 60 U/L (26-308)
[2018-10-16 14:40] VITALS: BP 118/71
--- NOTE | 2018-10-16 14:57 | Diagnostic Imaging Report ---
Indication: Headache Technique: Continuous helical CT scanning of the head was performed without intravenous contrast material. Axial and coronal 5 mm sections were generated. Radiation dose was minimized using automated exposure control Dose: Total Dose Length Product - DLP 1386.[address] Dose Index - CTDIvol(s) 70.38 mGy. Comparison: 01/11/2016 Findings: The ventricular system is normal in size and configuration. There is no shift of midline structures. No abnormal extra-axial fluid collections are noted. There is no evidence of intracerebral bleeding. No other abnormal high or low density areas are noted within the brain. Normal hunt-white differentiation.. Intact calvarium. Visualized orbits and sinuses are unremarkable. No significant interim change Impression: Normal CT scan of the head without contrast material. The CT scanner at [facility] is accredited by the [employer] and the scans are performed using protocols designed to limit radiation exposure to as low as reasonably achievable to attain images of sufficient resolution adequate for diagnostic evaluation.
--- NOTE | 2018-10-16 15:22 | Emergency Room Report ---
History of Present Illness General Chief Complaint: Headache Source: Patient Present Illness HPI Patient states she has had an intermittent headache for the past 2 weeks. She states the headache comes and goes and waxes and wanes in severity. She states this all started when she took the morning-after pill. She states that she then had bleeding and has had to be seen at another emergency department and that her primary care physician and underwent hormone therapy and to courses of antibiotics for a respiratory infection. She states that the headache causes nausea and light sensitivity. She denies neck pain or stiffness. She denies fever or chills. She denies abdominal pain. She has no other complaints. Allergies: Coded Allergies: No Known Allergies (Unverified , 03/22/18) Patient History Past Medical History: see triage record, other - fibromyalgia, gallstones Social History: Denies: smoking, alcohol use, drug use Last Menstrual Period: oct 05 Now: No Reviewed Nursing Documentation: PMH: Agreed; PSxH: Agreed Nursing Documentation-PMH Past Medical History: No History, Except For Hx Cardiac Problems: No - fibromyalgia, osteoarthritis Hx Pacemaker: No Hx Asthma: No Hx COPD: No Hx Diabetes: No Hx Cancer: No Hx Gastrointestinal Problems: No - Gallstones Hx Dialysis: No Hx Cerebrovascular Accident: No Hx Seizures: No Review of Systems All Other Systems: negative except mentioned in HPI Physical Exam Vital Signs Date Time Temp Pulse Resp B/P (MAP) Pulse Ox O2 Delivery O2 Flow Rate FiO2 10/16/18 13:26 98.2 60 18 109/77 98 Room Air Sp02 EP Interpretation: reviewed, normal General Appearance: no apparent distress, alert, GCS 15, non-toxic Head: normocephalic, atraumatic Eyes: bilateral eye normal inspection, bilateral eye PERRL ENT: hearing grossly normal, normal pharynx, no angioedema, normal voice Neck: full range of motion, supple/symm/no masses Respiratory: chest non-tender, lungs clear, normal breath sounds, speaking full sentences Cardiovascular #1: regular rate, rhythm, no edema Gastrointestinal: normal bowel sounds, non tender, soft, non-distended, no guarding, no rebound Rectal: deferred Musculoskeletal: back normal, gait/station normal, normal range of motion, non- tender Neurologic: alert, oriented x3, responsive, motor strength/tone normal, sensory intact, speech normal Psychiatric: judgement/insight normal, memory normal, mood/affect normal, no suicidal/homicidal ideation Skin: normal color, no rash, warm/dry, well hydrated Medical Decision Making Diagnostic Impression: Primary Impression: Headache Additional Impression: Anemia ER Course This patient is a clinical presentation consistent with migraine. The patient was treated with Compazine, Benadryl, Toradol and 1 liter of normal saline. The patient had complete resolution of the headache. CT head was unremarkable. There were no red flags on physical exam or history. I do not suspect meningitis, intracranial bleed, sinusitis. No emergency medical condition was identified. The patient was given return precautions and followup instructions. Laboratory Tests Test 10/16/18 13:55 White Blood Count 8.9 K/UL (4.8-10.8) Red Blood Count 3.47 M/UL (4.20-5.40) L Hemoglobin 9.1 G/DL (12.0-16.0) L Hematocrit 28.7 % (37.0-47.0) L Mean Corpuscular Volume 83 FL (80-99) Mean Corpuscular Hemoglobin 26.2 PG (27.0-31.0) L Mean Corpuscular Hemoglobin Concent 31.7 G/DL (32.0-36.0) L Red Cell Distribution Width 15.4 % (11.6-14.8) H Platelet Count 404 K/UL (150-450) Mean Platelet Volume 5.6 FL (6.5-10.1) L Neutrophils (%) (Auto) 51.4 % (45.0-75.0) Lymphocytes (%) (Auto) 41.7 % (20.0-45.0) Monocytes (%) (Auto) 5.2 % (1.0-10.0) Eosinophils (%) (Auto) 0.8 % (0.0-3.0) Basophils (%) (Auto) 0.9 % (0.0-2.0) Sodium Level 138 MMOL/L (136-145) Potassium Level 3.8 MMOL/L (3.5-5.1) Chloride Level 103 MMOL/L (98-107) Carbon Dioxide Level 26 MMOL/L (21-32) Anion Gap 10 mmol/L (5-15) Blood Urea Nitrogen 10 mg/dL (7-18) Creatinine 0.9 MG/DL (0.55-1.30) Estimate Glomerular Filtration Rate > 60 mL/min (>60) Glucose Level 112 MG/DL (74-106) H Calcium Level 9.4 MG/DL (8.5-10.1) Total Bilirubin 0.3 MG/DL (0.2-1.0) Aspartate Amino Transferase (AST) 25 U/L (15-37) Alanine Aminotransferase (ALT) 23 U/L (12-78) Alkaline Phosphatase 70 U/L (46-116) Total Creatine Kinase 60 U/L (26-308) Total Protein 8.7 G/DL (6.4-8.2) H Albumin 3.7 G/DL (3.4-5.0) Globulin 5.0 g/dL Albumin/Globulin Ratio 0.7 (1.0-2.7) L CT/MRI/US Diagnostic Results CT/MRI/US Diagnostic Results : Imaging Test Ordered: CT head Impression No acute findings. Specifically no intracranial bleed, mass effect or edema. See official report. Last Vital Signs Date Time Temp Pulse Resp B/P (MAP) Pulse Ox O2 Delivery O2 Flow Rate FiO2 10/16/18 14:40 98.2 61 20 118/71 99 Room Air Status: improved Disposition: HOME, SELF-CARE Condition: Improved Referrals: NON PHYSICIAN (PCP) Patient Instructions: General Headache Without Cause, Migraine Headache Amy Meade DO Oct 16, 2018 15:22
[2018-10-16] MEDS ORDERED: ZOMIG ZMT5 MG ORAL (15:59)
[2018-10-16 16:15] VITALS: BP_SYST 118; BP_SYST 121; BP_DIAS 71; BP_DIAS 76
== END 2018-10-16 16:15 | disposition home or self-care (01) ==
LOC: EMR 13:53
DX: R51 Headache (principal); D64.9 Anemia, unspecified
CPT/HCPCS: 36415; 70450; 80053; 82550; 85025; 96361; 96374; 96375; 99284; J0780; J1200

== ENCOUNTER 2018-11-21 18:19 | Emergency (ER) | payer OTHER ==
[~2018-11-21] VITALS: Ht 165.1 cm; Wt 86.2 kg
[~2018-11-21 18:19] MED LIST changes: +ZOMIG ZMT5 MG ORAL
--- NOTE | 2018-11-21 18:47 | NUR ---
ED Nurse Note: Pt came into the Er w/ complaints of redness, itchiness, burning in the perineal area x 5 days. Complaining of 8/10 pain in the perineal area. Non radiating. A + O x4. Ambulatory. Skin warm to touch. Pt provided urine and sediment noted in the urine.
[2018-11-21 18:49] VITALS: BP 115/60
[2018-11-21] MEDS ORDERED: Lidocaine 1% MPF 10mg/ml 5ml INJ ONE (19:00)
[2018-11-21] MEDS ORDERED: Fluconazole 100mg tab ORAL ONE (19:00)
[2018-11-21] MEDS ORDERED: Azithromycin 250mg tab ORAL ONE (19:00)
--- NOTE | 2018-11-21 19:00 | NUR ---
ED Nurse Note: Urine has been collected and sent to lab.
--- NOTE | 2018-11-21 19:10 | NUR ---
HAND-OFF: Report given to GRAYSON Delvalle.
[2018-11-21 19:12] LABS: APPEARANCE,URINE CLEAR; BILIRUBIN, URINE NEGATIVE (NEGATIVE); COLOR,URINE PALE YELLOW; GLUCOSE, URINE (UA) NEGATIVE (NEGATIVE); KETONES,URINE NEGATIVE (NEGATIVE); LEUKOCYTE ESTERASE ,URINE 2+ (NEGATIVE); NITRITE,URINE NEGATIVE (NEGATIVE); PH,URINE 6 (4.5-8.0); PROTEIN,URINE NEGATIVE (NEGATIVE); UROBILINOGEN,URINE NORMAL MG/DL (0.0-1.0)
--- NOTE | 2018-11-21 19:14 | Emergency Room Report ---
History of Present Illness General Chief Complaint: Female Urogenital Problems Source: Patient Present Illness HPI 38-year-old female patient presents the ER complaining of burning sensation on her labial folds for the past 5 days. Reports that she waxes the area in her pelvic region, states last done a few weeks ago. Patient reports no rash or redness. Reports burning symptoms ceased when she urinates. Denies dysuria, hematuria. Reports small "pink bull" discharge noted, states it looks like skin. Denies foul smelling odor. Reports recent sexual activity, reports recently was tested for STI and treated, denies passage of blood clots. Denies syncope. Reports she began taking Bactrim and fluconazole "a few days ago" that she had been prescribed several months ago but did not complete the full course. Patient states she saw her primary care doctor today who told her to continue taking medications and follow with the ER to get blood testing done to check her kidney function. Also complaining of bilateral flank pain during this time. Denies fever, chest pain, shortness of breath, abdominal pain. Allergies: Coded Allergies: No Known Allergies (Unverified , 11/21/18) Patient History Past Medical History: see triage record Last Menstrual Period: 11/07/18 Now: No - UNSURE Reviewed Nursing Documentation: PMH: Agreed; PSxH: Agreed Nursing Documentation-PMH Past Medical History: No History, Except For Hx Cardiac Problems: No - fibromyalgia, osteoarthritis Hx Pacemaker: No Hx Asthma: No Hx COPD: No Hx Diabetes: No Hx Cancer: No Hx Gastrointestinal Problems: No - Gallstones Hx Dialysis: No Hx Neurological Problems: No - fibroids Hx Cerebrovascular Accident: No Hx Seizures: No Review of Systems All Other Systems: negative except mentioned in HPI Physical Exam Vital Signs Date Time Temp Pulse Resp B/P (MAP) Pulse Ox O2 Delivery O2 Flow Rate FiO2 11/21/18 18:34 97.9 83 16 114/59 98 Room Air Sp02 EP Interpretation: reviewed, normal General Appearance: well appearing, no apparent distress, alert, GCS 15, non- toxic Head: normocephalic, atraumatic Eyes: bilateral eye normal inspection, bilateral eye PERRL ENT: hearing grossly normal, normal pharynx, no angioedema, normal voice, uvula midline, moist mucus membranes Neck: full range of motion, no bony tend Respiratory: lungs clear, normal breath sounds, no rhonchi, no respiratory distress, no accessory muscle use, no wheezing, speaking full sentences Cardiovascular #1: regular rate, rhythm, no edema Gastrointestinal: non tender, soft, no mass, non-distended, no guarding, no rebound Genitourinary: no CVA tenderness, ext genitalia/vag normal, other - hyperpigmentation noted on external labial folds, no erythema or edema, no tenderness to palpation Musculoskeletal: back normal, digits/nails normal, gait/station normal, normal range of motion, non-tender Neurologic: alert, oriented x3, responsive, motor strength/tone normal, sensory intact Psychiatric: mood/affect normal Medical Decision Making PA Attestation Dr. Woods is my supervising Physician whom patient management has been discussed with. Diagnostic Impression: Primary Impression: Encounter for laboratory test Additional Impression: Rash and other nonspecific skin eruption ER Course Pt. presents to the ED c/o burning skin irritation in vaginal region and requesting labs to evaluate kidney function. Ddx considered but are not limited to gonorrhea, chlamydia, cystitis, pyelonephritis, bacterial vaginosis, yeast infection, acute kidney injury. Vital signs: are WNL, pt. is afebrile ER COURSE: CMP shows creatinine WNL, no signs of impaired kidney function. UA results show no signs of infection, does not require abx for UTI at this time. Urine negative Physical exam performed with female manager highway present exam the external genitalia of patient. Shows hyperpigmentation of the external labial folds consistent with possible localized inflammation. Due to burning sensation will provide patient with hydrocortisone cream to treat affected area. Advised patient to follow-up with primary care provider to discuss further referral to ENDOCRINOLOGY TEACHER/dermatology as needed. ER precautions given. Advised to use safe sex practices including but not limited to use of condoms. Avoid sexual activity for the next 2 weeks. Instructed patient to follow up with STI clinic and/or PCP for STI evaluation and further treatment as necessary. Instructed patient to inform partners of needs for evaluation and treatment of possible infections. DISCHARGE: Patient is resting comfortably, in no acute distress, nontoxic appearing, talking without difficulty. Patient to take medications as instructed Will provide with patient care instructions and any necessary prescriptions. Care plan and follow-up instructions provided. Patient instructed to follow-up with primary care provider in 3 - 5 days. Patient questions asked and answered. Patient reports understanding and agreement to treatment plan. ER precautions given. Patient instructed to return to ER immediately for any new or worsening of symptoms including but not limited to increasing SOB, persistent fever. - Please note that this Emergency Department Report was dictated using Chainmail room clerk technology software, occasionally this can lead to erroneous entry secondary to interpretation by the dictation equipment. Labs Test 11/21/18 18:50 11/21/18 20:08 Urine Color Pale yellow Urine Appearance Clear Urine pH 6 (4.5-8.0) Urine Specific [place] 1.005 (1.005-1.035) Urine Protein Negative (NEGATIVE) Urine Glucose (UA) Negative (NEGATIVE) Urine Ketones Negative (NEGATIVE) Urine Blood 5+ (NEGATIVE) Urine Nitrite Negative (NEGATIVE) Urine Bilirubin Negative (NEGATIVE) Urine Urobilinogen Normal MG/DL (0.0-1.0) Urine Leukocyte Esterase 2+ (NEGATIVE) Urine RBC 5-10 /HPF (0 - 2) Urine WBC 2-4 /HPF (0 - 2) Urine Squamous Epithelial Cells Few /LPF (NONE/OCC) Urine Bacteria Few /HPF (NONE) Urine HCG, Qualitative Negative (NEGATIVE) Sodium Level 136 MMOL/L (136-145) Potassium Level 4.3 MMOL/L (3.5-5.1) Chloride Level 104 MMOL/L (98-107) Carbon Dioxide Level 19 MMOL/L (21-32) Anion Gap 13 mmol/L (5-15) Blood Urea Nitrogen 5 mg/dL (7-18) Creatinine 0.7 MG/DL (0.55-1.30) Estimat Glomerular Filtration Rate > 60 mL/min (>60) Glucose Level 91 MG/DL (74-106) Calcium Level 9.2 MG/DL (8.5-10.1) Total Bilirubin 0.3 MG/DL (0.2-1.0) Aspartate Amino Transf (AST/SGOT) 37 U/L (15-37) Alanine Aminotransferase (ALT/SGPT) 30 U/L (12-78) Alkaline Phosphatase 82 U/L (46-116) Total Protein 7.4 G/DL (6.4-8.2) Albumin 3.7 G/DL (3.4-5.0) Globulin 3.7 g/dL Albumin/Globulin Ratio 1.0 (1.0-2.7) Last Vital Signs Date Time Temp Pulse Resp B/P (MAP) Pulse Ox O2 Delivery O2 Flow Rate FiO2 11/21/18 18:49 97.9 90 17 115/60 97 Room Air Status: improved Disposition: HOME, SELF-CARE Condition: Stable Scripts Hydrocortisone (Hydrocortisone Cream 2.5%) Y Cream.appl 1 APPLIC TP BID, #28 GM Prov: Aaron Mendoza 11/21/18 Patient Instructions: Rash, [id number], Urinary Tract Infection, [id number] Additional Instructions: Followup with primary care provider and followup with loan documentation specialist and request referral to derm specialist. Alert sexual partners for need for evaluation and treatment. Wear condoms during sex. Avoid sexual activity for 2 weeks. Drink plenty of fluids. Patient questions asked and answered. ER precautions given, patient instructed to return to ER immediately for any new or worsening of symptoms. Aaron Mendoza Nov 21, 2018 19:14
--- NOTE | 2018-11-21 20:35 | NUR ---
ED Nurse Note: pt states she shaves/wax perineal area and has irritation since then, will cont monitor.
[2018-11-21 20:42] LABS: ANION GAP 13 mmol/L (5-15); BLOOD UREA NITROGEN 5 mg/dL (7-18); CALCIUM 9.2 MG/DL (8.5-10.1); CARBON DIOXIDE 19 MMOL/L (21-32); CHLORIDE 104 MMOL/L (98-107); CREATININE 0.7 MG/DL (0.55-1.30); POTASSIUM 4.3 MMOL/L (3.5-5.1); SODIUM 136 MMOL/L (136-145)
[2018-11-21 20:46] LABS: ALANINE AMINOTRANSFERASE 30 U/L (12-78); ALBUMIN 3.7 G/DL (3.4-5.0); ALKALINE PHOSPHATASE 82 U/L (46-116); ASPARTATE AMINO TRANSFERASE 37 U/L (15-37); BILIRUBIN,TOTAL 0.3 MG/DL (0.2-1.0)
[2018-11-21] MEDS ORDERED: HYDROCORTISONE30 G2 TP (21:12)
[2018-11-21 21:15] VITALS: BP 134/68
--- NOTE | 2018-11-21 21:15 | NUR ---
ED Nurse Note: pt discharge instruction provided w/ prescription, pt wristband removed, pt education done via discussion and handout, pt advised to follow up with pcp or return to ed if s/s worsen or new s/s develop, pt verbalized understanding and agrees with plan, all belongings left with pt.
--- NOTE | 2018-11-21 21:15 | NUR ---
ED Nurse Note: cbc cancelled per PA Yao order.
[2019-01-16] MEDS ORDERED: BENADRYL ALLERG25 M1 PO (23:20)
[2019-07-23] MEDS ORDERED: EXCEDRIN MIGRA1 EACH PO (19:36)
[2019-07-23] MEDS ORDERED: MECLIZINE HCL25 MG ORAL (19:36)
[2019-08-14] MEDS ORDERED: NKM (08:06)
[2019-08-14] MEDS ORDERED: ONDANSETRON ODT4 MG BC (08:23)
[2019-08-14] MEDS ORDERED: RANITIDINE HCL150 MG ORAL (08:24)
== END 2018-11-21 21:15 | disposition home or self-care (01) ==
LOC: EMR 19:00
DX: Z04.89 Encounter for examination and observation for other specified reasons (principal); R21 Rash and other nonspecific skin eruption; R10.9 Unspecified abdominal pain
CPT/HCPCS: 36415; 80053; 81003; 81025; 96372; 96374; 99284

== ENCOUNTER 2019-04-01 11:19 | Emergency (ER) | payer OTHER ==
[~2019-04-01] VITALS: Ht 170.2 cm; Wt 74.8 kg
[~2019-04-01 11:19] MED LIST changes: +BENADRYL ALLERG25 M1 PO; +HYDROCORTISONE30 G2 TP
--- NOTE | 2019-04-01 11:27 | NUR ---
ED Nurse Note: Pt came in from home due to productive coughing with yellowish phlegm x 1 month. Chest and back discomfort 6/10 jose g. SAT 98% RA. AOx4, VSS.Will cont to monitor.
[2019-04-01] MEDS ORDERED: AMOXICILLIN500 MG ORAL (12:00)
[2019-04-01] MEDS ORDERED: RANITIDINE HCL150 MG ORAL (12:00)
[2019-04-01] MEDS ORDERED: PROMETHAZINE-C118 M1 ORAL (12:00)
[2019-04-01] MEDS ORDERED: ALBUTEROL SULF8.5 GM INH (12:00)
[2019-04-01 12:07] VITALS: BP 138/75
[2019-04-01 12:08] VITALS: BP 138/75
--- NOTE | 2019-04-01 12:08 | NUR ---
ER DISCHARGE NOTE: Patient is cleared to be discharged per ERMD, pt is aox4, on room air, with stable vital signs. pt was given dc and prescription instructions, pt was able to verbalize understanding, pt id band removed. pt is able to ambulate with steady gait. pt took all belongings.
--- NOTE | 2019-04-01 13:37 | Emergency Room Report ---
History of Present Illness General Chief Complaint: Upper Respiratory Illness Source: Patient Present Illness HPI 38-year-old female presents ED for evaluation. Patient is complaining of a cough for the last month. States she's tried [id number] medications without resolution. Cough is dry. Denies fevers or chills. Denies sick contacts or recent travel. States she has pain in her back worse with coughing. Pain is dull, 5 out of 10. Nonradiating. Also complaining of epigastric pain, 7 out of 10, burning, nonradiating. States that she has gastritis and takes omeprazole. Denies nausea or vomiting. No other aggravating relieving factors. Denies any other associated symptoms Allergies: Coded Allergies: No Known Allergies (Unverified , 11/21/18) Patient History Past Medical History: none, GERD Past Surgical History: none Pertinent Family History: none Social History: Denies: smoking, alcohol use, drug use Last Menstrual Period: October 2018 Now: No Immunizations: UTD Reviewed Nursing Documentation: PMH: Agreed; PSxH: Agreed Nursing Documentation-PMH Past Medical History: No History, Except For Hx Cardiac Problems: No - fibromyalgia, osteoarthritis Hx Pacemaker: No Hx Asthma: No Hx COPD: No Hx Diabetes: No Hx Cancer: No Hx Gastrointestinal Problems: No - Gallstones Hx Dialysis: No Hx Neurological Problems: No - fibroids Hx Cerebrovascular Accident: No Hx Seizures: No Review of Systems All Other Systems: negative except mentioned in HPI Physical Exam Vital Signs Date Time Temp Pulse Resp B/P (MAP) Pulse Ox O2 Delivery O2 Flow Rate FiO2 04/01/19 11:22 98.8 85 18 141/77 (98) 98 Room Air Sp02 EP Interpretation: reviewed, normal General Appearance: no apparent distress, alert, GCS 15, non-toxic Head: normocephalic, atraumatic Eyes: bilateral eye normal inspection, bilateral eye PERRL ENT: hearing grossly normal, normal pharynx, no angioedema, normal voice Neck: full range of motion, supple/symm/no masses Respiratory: chest non-tender, lungs clear, normal breath sounds, speaking full sentences Cardiovascular #1: regular rate, rhythm, no edema Cardiovascular #2: 2+ carotid (R), 2+ carotid (L), 2+ radial (R), 2+ radial (L) , 2+ dorsalis pedis (R), 2+ dorsalis pedis (L) Gastrointestinal: normal bowel sounds, non tender, soft, non-distended, no guarding, no rebound Rectal: deferred Genitourinary: normal inspection, no CVA tenderness Musculoskeletal: back normal, gait/station normal, normal range of motion, non- tender Neurologic: alert, oriented x3, responsive, motor strength/tone normal, sensory intact, speech normal Psychiatric: judgement/insight normal, memory normal, mood/affect normal, no suicidal/homicidal ideation Reflexes: 3+ bicep (R), 3+ bicep (L), 3+ tricep (R), 3+ tricep (L), 3+ knee (R) , 3+ knee (L) Skin: normal color, no rash, warm/dry, well hydrated Lymphatic: no adenopathy Medical Decision Making Diagnostic Impression: Primary Impression: Atypical pneumonia ER Course Hospital Course 38-year-old female presents ED complaining of back pain and cough x 1 month Differential diagnoses include: URI, pharyngitis, otitis media, asthma Clinical course Patient placed on stretcher. After initial history, physical exam reveals a female in no acute distress. Bilateral TM unremarkable. No pharyngeal erythema. No tonsillar exudates. No lymphadenopathy. lungs clear. abdomen soft. Presentation consistent with atypical pneumonia. Prescribe antibiotics, inhaler , cough medication. Abdomen soft. We'll order Pepcid here. Safe for discharge or close outpatient follow-up. States she has a PMD Diagnosis - atypical pneumonia Stable and discharged home with Rx amoxicillin, promethazine, albuterol, zantac. Instructed to followup with PMD. Return to ED if symptoms recur or worsen Last Vital Signs Date Time Temp Pulse Resp B/P (MAP) Pulse Ox O2 Delivery O2 Flow Rate FiO2 04/01/19 12:08 98.8 88 20 138/75 98 Room Air Status: improved Disposition: HOME, SELF-CARE Condition: Stable Scripts Amoxicillin* (AMOXIL*) 500 Mg Capsule 500 MG ORAL THREE TIMES A DAY, #21 CAP Prov: Pedro Juarez MD 04/01/19 Ranitidine Hcl* (ZANTAC*) 150 Mg Tablet 150 MG ORAL TWICE A DAY, #30 TAB Prov: Pedro Juarez MD 04/01/19 Codeine/Promethazine Hcl* (PROMETHAZINE-CODEINE SYRUP*) 118 Ml Syrup 5 ML ORAL Q6H PRN for For Cough, #118 ML 0 Refills Prov: Pedro Juarez MD 04/01/19 Albuterol Sulfate* (ALBUTEROL SULFATE MDI*) 8.5 Gm Hfa.aer.ad 2 PUFF INH Q6H, #1 EA 0 Refills Prov: Pedro Juarez MD 04/01/19 Patient Instructions: Community-Acquired Pneumonia, Adult, Ximi-[id number] Pedro Juarez MD Apr 01, 2019 13:37
== END 2019-04-01 12:08 | disposition home or self-care (01) ==
LOC: EMR 11:39
DX: J18.9 Pneumonia, unspecified organism (principal); K21.9 Gastro-esophageal reflux disease without esophagitis; M79.7 Fibromyalgia; M19.90 Unspecified osteoarthritis, unspecified site
CPT/HCPCS: 99282

== ENCOUNTER 2019-11-10 08:13 | Emergency (ER) | payer OTHER ==
[~2019-11-10] VITALS: Ht 165.1 cm; Wt 86.2 kg
[~2019-11-10 08:13] MED LIST changes: +ALBUTEROL SULF8.5 GM INH; +AMOXICILLIN500 MG ORAL; +EXCEDRIN MIGRA1 EACH PO; +MECLIZINE HCL25 MG ORAL; +ONDANSETRON ODT4 MG BC; +PROMETHAZINE-C118 M1 ORAL; +RANITIDINE HCL150 MG ORAL
[2019-11-10 08:22] VITALS: BP 113/69
--- NOTE | 2019-11-10 08:22 | NUR ---
ED Nurse Note: Pt ambulated to ED with c/o flu-like symptoms x 3 days. Pt stated, "I took a lot of medications last night, some of them are nyquil and benadryl, but after that i felt like i was having hallucinations." Pt is calm and cooperative, AOx4. Placed on bed and gown, will continue to monitor.
--- NOTE | 2019-11-10 08:35 | NUR ---
ED Nurse Note: ERMD on bedside.
--- NOTE | 2019-11-10 09:00 | NUR ---
ED Nurse Note: X-ray done.
--- NOTE | 2019-11-10 09:11 | Emergency Room Report ---
History of Present Illness General Chief Complaint: Flu Like Symptoms Source: Patient Present Illness HPI Patient presents with complaints of ongoing cough reports that about 2 weeks ago She was seen by her primary physician was given Z-Gregory she seemed to improve For few days however again the cough returned Patient complains of chills Also having night sweats Denies any vomiting or diarrhea denies any back or flank pain denies any focal weakness denies any recent travel or hemoptysis Allergies: Coded Allergies: No Known Allergies (Unverified , 11/21/18) Patient History Past Medical History: see triage record Last Menstrual Period: 07/2019 Reviewed Nursing Documentation: PMH: Agreed; PSxH: Agreed Nursing Documentation-PMH Past Medical History: No Stated History Hx Cardiac Problems: No - fibromyalgia, osteoarthritis Hx Pacemaker: No Hx Asthma: No Hx COPD: No Hx Diabetes: No Hx Cancer: No Hx Gastrointestinal Problems: No - Gallstones Hx Dialysis: No Hx Neurological Problems: No - fibroids Hx Cerebrovascular Accident: No Hx Seizures: No Review of Systems All Other Systems: negative except mentioned in HPI Physical Exam Vital Signs Date Time Temp Pulse Resp B/P (MAP) Pulse Ox O2 Delivery O2 Flow Rate FiO2 11/10/19 08:15 98.1 74 16 113/69 (84) 97 Room Air Sp02 EP Interpretation: reviewed, normal General Appearance: well appearing, no apparent distress Head: normocephalic, atraumatic Eyes: bilateral eye PERRL, bilateral eye EOMI ENT: hearing grossly normal, normal pharynx, TMs + canals normal, uvula midline Neck: full range of motion, supple, no meningismus, no bony tend Respiratory: lungs clear, normal breath sounds, no rhonchi, no respiratory distress, no retraction, no accessory muscle use Cardiovascular #1: normal peripheral pulses, regular rate, rhythm, no edema, no gallop, no JVD, no murmur Gastrointestinal: normal bowel sounds, non tender, soft, no mass, no organomegaly, non-distended, no guarding, no hernia, no pulsatile mass, no rebound Musculoskeletal: normal inspection Neurologic: motor strength/tone normal, engineering intern III-XII nml as tested, oriented x3 , sensory intact, responsive Psychiatric: mood/affect normal Lymphatic: normal inspection, no adenopathy Medical Decision Making Diagnostic Impression: Primary Impression: Influenza-like symptoms ER Course Multiple differentials and consideration including but not limited to pneumonia , flu symptoms URI, Given the duration of symptoms x-ray was obtained which was negative patient's findings are consistent with a viral URI She is placed on Symptomatic medication and will have initial conservative outpatient trial Chest X-Ray Diagnostic Results Chest X-Ray Diagnostic Results : Chest X-Ray Ordered: Yes # of Views/Limited/Complete: 1 View Indication: Shortness of Breath EP Interpretation: Yes Interpretation: no consolidation, no effusion, no pneumothorax Impression: No acute disease Electronically Signed by: Radha Nolasco DO Last Vital Signs Date Time Temp Pulse Resp B/P (MAP) Pulse Ox O2 Delivery O2 Flow Rate FiO2 11/10/19 08:22 74 16 Room Air 11/10/19 08:22 97.0 113/69 97 Status: improved Disposition: HOME, SELF-CARE Condition: Improved Scripts Dextromethorphan Hb/Doxylamine (ROBITUSSIN NIGHTTIME COUGH DM) 237 Ml Liquid 10 ML PO QHS for 5 Days, ML Prov: Radha Nolasco DO 11/10/19 Methylprednisolone (Methylprednisolone*) 4MG Dspk 4 MG ORAL DIRECTED for 6 Days, #21 EA 0 Refills Day 1: Two tablets before breakfast, one after lunch, one after dinner, and two at bedtime. If started late in the day, take all six tablets at once or divide into two or three doses, unless otherwise directed by prescriber. Day 2: One tablet before breakfast, one after lunch, one after dinner, and two at bedtime Day 3: One tablet before breakfast, one after lunch, one after dinner, and one at bedtime Day 4: One tablet before breakfast, one after lunch, and one at bedtime Day 5: One tablet before breakfast and one at bedtime Day 6: One tablet before breakfast Prov: Radha Nolasco DO 11/10/19 Albuterol Sulfate* (ALBUTEROL SULFATE MDI*) 8.5 Gm Hfa.aer.ad 2 PUFF INH Q6H for 7 Days, #1 EA 0 Refills Prov: Radha Nolasco DO 11/10/19 Referrals: NON PHYSICIAN (PCP) Additional Instructions: Patient is provided with the discharge instructions notified to follow up with primary doctor in the next 2-3 days otherwise return to the er with any worsening symptoms. Please note that this report is being documented using [employer] technology. This can lead to erroneous entry secondary to incorrect interpretation by the dictating instrument. Radha Nolasco DO Nov 10, 2019 09:11
[2019-11-10] MEDS ORDERED: ALBUTEROL SULF8.5 GM INH (09:38)
[2019-11-10] MEDS ORDERED: ROBITUSSIN NIG237 ML PO (09:38)
[2019-11-10] MEDS ORDERED: MEDROL DOSEPAK4 MG ORAL (09:38)
[2019-11-10 09:50] VITALS: BP 116/72
--- NOTE | 2019-11-10 09:50 | NUR ---
ER DISCHARGE NOTE: Pt is cleared to be discharged per ERMD, pt is aox4, on room air, with stable vital signs. pt was given dc and prescription instructions, pt was able to verbalize understanding, pt id band removed. pt is able to ambulate with steady gait. pt took all belongings.
--- NOTE | 2019-11-10 10:10 | Diagnostic Imaging Report ---
EXAM: XR Chest, 1 View CLINICAL HISTORY: COUGH TECHNIQUE: Frontal view of the chest. COMPARISON: Chest x-ray dated 01/16/19 FINDINGS: Lungs: Unremarkable. The lungs appear clear. No focal consolidation. Pleural space: Unremarkable. The costophrenic angles are sharp. No visible pneumothorax. Heart: Unremarkable. No cardiomegaly. Mediastinum: Unremarkable. Bones/joints: Unremarkable. IMPRESSION: No acute findings.
== END 2019-11-10 09:50 | disposition home or self-care (01) ==
LOC: EMR 08:24
DX: J11.1 Influenza due to unidentified influenza virus with other respiratory manifestations (principal)
CPT/HCPCS: 71045; Z7502; 99283

== ENCOUNTER 2019-11-28 19:43 | Emergency (ER) | payer OTHER ==
[~2019-11-28] VITALS: Ht 165.1 cm; Wt 86.2 kg
[~2019-11-28 19:43] MED LIST changes: +MEDROL DOSEPAK4 MG ORAL; +ROBITUSSIN NIG237 ML PO
[2019-11-28 19:58] VITALS: BP 130/70
--- NOTE | 2019-11-28 19:58 | NUR ---
ED Nurse Note: Patient present siwth complaints of cough, and body aches x 5 days.
--- NOTE | 2019-11-28 20:23 | NUR ---
ED Nurse Note: ERMD at bedside.
[2019-11-28] MEDS ORDERED: TESSALON PERLE100 MG ORAL (20:27)
[2019-11-28] MEDS ORDERED: TAMIFLU75 MG ORAL (20:28)
[2019-11-28] MEDS ORDERED: Acetaminophen 500mg (ES) tab ORAL ONE (20:30)
[2019-11-28 20:46] VITALS: BP 130/70
--- NOTE | 2019-11-28 20:46 | NUR ---
ER DISCHARGE NOTE: Patient is cleared to be discharged per ERMD, pt is aox4, on room air, with stable vital signs. pt was given dc and prescription instructions, pt was able to verbalize understanding, pt id band removed without complications. pt is able to ambulate with steady gait. pt took all belongings.
--- NOTE | 2019-11-28 20:58 | Emergency Room Report ---
History of Present Illness General Chief Complaint: Flu Like Symptoms Source: Patient Present Illness HPI Patient presents with complaints of aching in her legs and lower back patient has continued cough Patient reports that after her disposition from the hospital last time here she was seen by her primary physician felt that she had seasonal allergies was given albuterol Patient also reports that she was given an inhaler steroid however was not able to fill that medicine Recently now she has developed a fever Her cough had improved however again now returned denies any neck pain or photophobia denies any chest pain Patient does have discomfort to both of her upper legs and lower back area Allergies: Coded Allergies: No Known Allergies (Unverified , 11/21/18) Patient History Past Medical History: see triage record Last Menstrual Period: NA Now: No : 6 Para: 2 Reviewed Nursing Documentation: PMH: Agreed; PSxH: Agreed Nursing Documentation-PMH Past Medical History: No History, Except For Hx Cardiac Problems: No - fibromyalgia, osteoarthritis Hx Pacemaker: No Hx Asthma: No Hx COPD: No Hx Diabetes: No Hx Cancer: No Hx Gastrointestinal Problems: No - Gallstones Hx Dialysis: No Hx Neurological Problems: No - fibroids Hx Cerebrovascular Accident: No Hx Seizures: No Review of Systems All Other Systems: negative except mentioned in HPI Physical Exam Vital Signs Date Time Temp Pulse Resp B/P (MAP) Pulse Ox O2 Delivery O2 Flow Rate FiO2 11/28/19 19:58 102.6 124 20 130/70 (90) 96 Room Air Sp02 EP Interpretation: reviewed, normal General Appearance: no apparent distress Head: normocephalic, atraumatic Eyes: bilateral eye PERRL, bilateral eye EOMI ENT: hearing grossly normal, EOM grossly intact Neck: supple Respiratory: lungs clear, no respiratory distress, no retraction Cardiovascular #1: tachycardia Gastrointestinal: non tender, soft Genitourinary: no CVA tenderness Musculoskeletal: normal inspection Neurologic: alert, oriented x3 Psychiatric: normal inspection Skin: no rash Lymphatic: no adenopathy Medical Decision Making Diagnostic Impression: Primary Impression: Influenza-like symptoms ER Course Patient does present febrile at this time and initially in triage was somewhat tachycardic patient has been using her albuterol however On Examination heart rate had improved significantly patient provided with Tylenol Multiple differentials including but not limited to flu, pneumonia, meningitis, other infectious process entertained Patient's heart rate has improved significantly with temperature control as well given the new development of fever possible flu Entertained further Patient had x-rays here recently which were negative for pneumonia and patient will be placed on Tamiflu with conservative outpatient trial And return with any worsening symptoms Last Vital Signs Date Time Temp Pulse Resp B/P (MAP) Pulse Ox O2 Delivery O2 Flow Rate FiO2 11/28/19 20:46 101.2 109 20 130/70 96 Room Air Status: improved Disposition: HOME, SELF-CARE Condition: Stable Scripts Oseltamivir Phosphate (Tamiflu) 75 Mg Capsule 75 MG ORAL TWICE A DAY for 5 Days, CAP Prov: Radha Nolasco DO 11/28/19 Benzonatate* (TESSALON PERLE*) 100 Mg Capsule 100 MG ORAL BID, #12 PERLE Prov: Radha Nolasco DO 11/28/19 Referrals: PMD Patient Instructions: Influenza, Adult, [id number] Additional Instructions: Patient is provided with the discharge instructions notified to follow up with primary doctor in the next 2-3 days otherwise return to the er with any worsening symptoms. Please note that this report is being documented using Shareable Social technology. This can lead to erroneous entry secondary to incorrect interpretation by the dictating instrument. Radha Nolasco DO Nov 28, 2019 20:58
== END 2019-11-28 20:49 | disposition home or self-care (01) ==
LOC: EMR 20:15
DX: R05 Cough (principal); M54.5 Low back pain; M19.90 Unspecified osteoarthritis, unspecified site; M79.7 Fibromyalgia; R50.9 Fever, unspecified
CPT/HCPCS: 99282

== ENCOUNTER 2020-07-24 22:36 | Emergency (ER) | payer OTHER ==
[~2020-07-24] VITALS: Ht 162.6 cm; Wt 88.5 kg
[~2020-07-24 22:36] MED LIST changes: +TAMIFLU75 MG ORAL; +TESSALON PERLE100 MG ORAL
[2020-07-24 23:20] VITALS: BP 119/77
--- NOTE | 2020-07-24 23:30 | Emergency Room Report ---
History of Present Illness General Chief Complaint: Abdominal Pain Source: Patient Present Illness HPI Since Tuesday the patient has had intermittent suprapubic pain on the left. It radiates also to the left upper quadrant and after about 10 minutes she feels it in her left side of her neck. She does not believe she is . She had unprotected sex during her period. Her last menstrual cycle was on July and lasted only 3 days. She is taking both Motrin and Tylenol. They have not helped at all. The last dose of Tylenol was yesterday and the last Motrin was at 830 this morning. She denies any fevers or chills. The pain is rated 8/10 at this time. She denies nausea vomiting or change in her bowel habits. She denies dysuria or vaginal discharge. She has never had pain like this before. She does report that she has had a ovarian cyst in the past. The pain began 1 day after having intercourse. She denies vaginal discharge. She denies contact with COVID-19 positive people. No chest pain, palpitations, shortness of breath, joint pain, rashes, depression, anxiety, visual changes, dizziness, headache. 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 Last Menstrual Period: 06/07/20 Now: No : 2 Para: 2 Reviewed Nursing Documentation: PMH: Agreed; PSxH: Agreed Nursing Documentation-PMH Hx Cardiac Problems: Yes - hyperlipidemia Hx Pacemaker: No Hx Asthma: No Hx COPD: No Hx Diabetes: No Hx Cancer: No Hx Gastrointestinal Problems: No - Gallstones Hx Dialysis: No History Of Psychiatric Problem: Yes - bipolar, depression Hx Neurological Problems: No - fibroids Hx Cerebrovascular Accident: No Hx Seizures: No Review of Systems All Other Systems: negative except mentioned in HPI Physical Exam Vital Signs Date Time Temp Pulse Resp B/P (MAP) Pulse Ox O2 Delivery O2 Flow Rate FiO2 07/24/20 22:42 99.0 64 20 119/77 (91) 96 Room Air Sp02 EP Interpretation: reviewed, normal General Appearance: well appearing, no apparent distress, GCS 15 Head: normocephalic Eyes: bilateral eye normal inspection, bilateral eye PERRL, bilateral eye EOMI ENT: moist mucus membranes Neck: supple Respiratory: lungs clear, normal breath sounds Cardiovascular #1: regular rate, rhythm Cardiovascular #2: 2+ radial (R) Gastrointestinal: normal inspection, normal bowel sounds, no mass, non- distended, no guarding, no rebound, tenderness - Reported left lower quadrant Genitourinary: no CVA tenderness, deferred - Ultrasound Musculoskeletal: back normal, normal range of motion, gait/station normal Neurologic: alert, oriented x3, grossly normal Psychiatric: mood/affect normal Skin: no rash, warm/dry Medical Decision Making Diagnostic Impression: Primary Impression: Ovarian cyst Qualified Codes: N83.202 - Unspecified ovarian cyst, left side Additional Impressions: Abdominal pain Qualified Codes: R10.84 - Generalized abdominal pain Gallstones ER Course Patient presents with left-sided suprapubic pain radiating up into her upper abdomen and in her neck for 4 days intermittently. Differential includes e ctopic , ovarian cyst, ovarian torsion, urinary tract infection, diverticulitis renal stone amongst others. Evaluation with ultrasound both pelvic and abdomen, labs. Patient treated with IV hydration and initially with Tylenol. If test is negative she will receive Toradol. Labs with normal CBC with mild anemia. CMP normal. Urinalysis with minimal pyuria. Ultrasound reveals ovarian cyst. No evidence of renal stone. Gallstones identified. Based on the location of pain gallstones not significantly contributing to underlying etiology. Looks like contininated specimen urine. Elected not to treat and wait for cultures. Patient declined Toradol. Patient states the pain is significantly improved. Discussed findings with patient. Discussed the need for outpatient reevaluation. Patient stable for outpatient observation and treatment. Laboratory Tests Test 07/24/20 23:11 White Blood Count 10.7 K/UL (4.8-10.8) Red Blood Count 4.51 M/UL (4.20-5.40) Hemoglobin 11.0 G/DL (12.0-16.0) L Hematocrit 35.3 % (37.0-47.0) L Mean Corpuscular Volume 78 FL (80-99) L Mean Corpuscular Hemoglobin 24.3 PG (27.0-31.0) L Mean Corpuscular Hemoglobin Concent 31.0 G/DL (32.0-36.0) L Red Cell Distribution Width 18.0 % (11.6-14.8) H Platelet Count 351 K/UL (150-450) Mean Platelet Volume 5.8 FL (6.5-10.1) L Neutrophils (%) (Auto) 42.3 % (45.0-75.0) L Lymphocytes (%) (Auto) 46.4 % (20.0-45.0) H Monocytes (%) (Auto) 7.4 % (1.0-10.0) Eosinophils (%) (Auto) 2.4 % (0.0-3.0) Basophils (%) (Auto) 1.6 % (0.0-2.0) Prothrombin Time 11.3 SEC (9.30-11.50) Prothrombin Time INR 1.0 (0.9-1.1) Activated Partial Thromboplast Time 30 SEC (23-33) Urine Color Yellow Urine Appearance Clear Urine pH 5 (4.5-8.0) Urine Specific [place] 1.025 (1.005-1.035) Urine Protein Negative (NEGATIVE) Urine Glucose (UA) Negative (NEGATIVE) Urine Ketones Negative (NEGATIVE) Urine Blood Negative (NEGATIVE) Urine Nitrite Negative (NEGATIVE) Urine Bilirubin Negative (NEGATIVE) Urine Urobilinogen Normal MG/DL (0.0-1.0) Urine Leukocyte Esterase 1+ (NEGATIVE) H Urine RBC 2-4 /HPF (0 - 2) H Urine WBC 5-10 /HPF (0 - 2) H Urine Squamous Epithelial Cells Many /LPF (NONE/OCC) H Urine Bacteria Few /HPF (NONE) Urine HCG, Qualitative Negative (NEGATIVE) Sodium Level 140 MMOL/L (136-145) Potassium Level 3.8 MMOL/L (3.5-5.1) Chloride Level 105 MMOL/L (98-107) Carbon Dioxide Level 26 MMOL/L (21-32) Anion Gap 9 mmol/L (5-15) Blood Urea Nitrogen 13 mg/dL (7-18) Creatinine 0.9 MG/DL (0.55-1.30) Estimated Glomerular Filtration Rate > 60 mL/min (>60) Glucose Level 103 MG/DL (74-106) Calcium Level 9.3 MG/DL (8.5-10.1) Total Bilirubin 0.1 MG/DL (0.2-1.0) L Aspartate Amino Transferase (AST) 27 U/L (15-37) Alanine Aminotransferase (ALT) 33 U/L (12-78) Alkaline Phosphatase 73 U/L (46-116) Total Protein 7.3 G/DL (6.4-8.2) Albumin 3.8 G/DL (3.4-5.0) Globulin 3.5 g/dL Albumin/Globulin Ratio 1.1 (1.0-2.7) Lipase 257 U/L (73-393) CT/MRI/US Diagnostic Results CT/MRI/US Diagnostic Results #1: Imaging Test Ordered: Pelvic and transvaginal ultrasound Impression Tech reports ovarian cyst however report states exam is normal. CT/MRI/US Diagnostic Results #2: Imaging Test Ordered: Abdominal ultrasound Impression 1. Contracted gallbladder with multiple gallstones filling the gallbladder lumen. No wall thickening or pericholecystic fluid. 2. Hepatic steatosis. Last Vital Signs Date Time Temp Pulse Resp B/P (MAP) Pulse Ox O2 Delivery O2 Flow Rate FiO2 07/25/20 02:42 98.5 70 18 115/75 98 Room Air Status: improved Disposition: HOME, SELF-CARE Condition: Improved Referrals: NON PHYSICIAN (PCP) Lemuel Bryant MD Jul 24, 2020 23:30
[2020-07-24 23:46] LABS: BASOPHILS % (AUTO) 1.6 % (0.0-2.0); EOSINOPHILS % (AUTO) 2.4 % (0.0-3.0); HEMATOCRIT 35.3 % (37.0-47.0); LYMPHOCYTES % (AUTO) 46.4 % (20.0-45.0); MEAN CORPUSCULAR VOLUME 78 FL (80-99); MONOCYTES % (AUTO) 7.4 % (1.0-10.0); NEUTROPHILS % (AUTO) 42.3 % (45.0-75.0); PLATELET COUNT 351 K/UL (150-450); RED BLOOD COUNT 4.51 M/UL (4.20-5.40); WHITE BLOOD COUNT 10.7 K/UL (4.8-10.8)
[2020-07-25 00:11] LABS: APPEARANCE,URINE CLEAR; BILIRUBIN, URINE NEGATIVE (NEGATIVE); COLOR,URINE YELLOW; GLUCOSE, URINE (UA) NEGATIVE (NEGATIVE); KETONES,URINE NEGATIVE (NEGATIVE); LEUKOCYTE ESTERASE ,URINE 1+ (NEGATIVE); NITRITE,URINE NEGATIVE (NEGATIVE); PH,URINE 5 (4.5-8.0); PROTEIN,URINE NEGATIVE (NEGATIVE); UROBILINOGEN,URINE NORMAL MG/DL (0.0-1.0)
[2020-07-25 00:13] LABS: ANION GAP 9 mmol/L (5-15); BLOOD UREA NITROGEN 13 mg/dL (7-18); CALCIUM 9.3 MG/DL (8.5-10.1); CARBON DIOXIDE 26 MMOL/L (21-32); CHLORIDE 105 MMOL/L (98-107); CREATININE 0.9 MG/DL (0.55-1.30); POTASSIUM 3.8 MMOL/L (3.5-5.1); SODIUM 140 MMOL/L (136-145)
[2020-07-25 00:19] LABS: ALANINE AMINOTRANSFERASE 33 U/L (12-78); ALBUMIN 3.8 G/DL (3.4-5.0); ALBUMIN/GLOBULIN RATIO 1.1 (1.0-2.7); ALKALINE PHOSPHATASE 73 U/L (46-116); ASPARTATE AMINO TRANSFERASE 27 U/L (15-37); BILIRUBIN,TOTAL 0.1 MG/DL (0.2-1.0)
--- NOTE | 2020-07-25 02:35 | Diagnostic Imaging Report ---
EXAM: US Abdomen Complete CLINICAL HISTORY: ABD PAIN TECHNIQUE: Real-time ultrasound of the abdomen with image documentation. COMPARISON: No relevant prior studies available. FINDINGS: Liver: Liver measured to 14.4 cm with increased echogenicity. No intrahepatic bile duct dilation. Gallbladder: Contracted gallbladder with multiple gallstones filling the gallbladder lumen. No wall thickening or pericholecystic fluid. Common bile duct: Common bile duct measures up to 3 mm. No stones. No dilation. Pancreas: Unremarkable as visualized. Kidneys: Right kidney measures up to 9.4 cm. No stones. No hydronephrosis. Spleen: Unremarkable. No splenomegaly. Aorta: Unremarkable. No aneurysm. Inferior vena cava: Unremarkable. IMPRESSION: 1. Contracted gallbladder with multiple gallstones filling the gallbladder lumen. No wall thickening or pericholecystic fluid. 2. Hepatic steatosis.
[2020-07-25 02:42] VITALS: BP 115/75
--- NOTE | 2020-07-25 02:43 | Diagnostic Imaging Report ---
EXAM: US Pelvis Transabdominal and Transvaginal, Complete CLINICAL HISTORY: ABD PAIN TECHNIQUE: Real-time complete transabdominal and transvaginal pelvic ultrasound with image documentation. Transvaginal imaging was used for better evaluation of the endometrium and adnexa. COMPARISON: No relevant prior studies available. FINDINGS: Uterus/cervix: Measures 9.8 x 6.6 x 5.7 cm. Normal endometrial stripe thickness measuring up to 12 mm. No myometrial mass. Right ovary: Measures 3.4 x 1.3 x 1.2 cm. No mass. Normal blood flow. Left ovary: Measures 3.7 x 1.9 x 1.7 cm. No mass. Normal blood flow. Free fluid: No free fluid. IMPRESSION: Normal pelvic ultrasound.
== END 2020-07-25 02:47 | disposition home or self-care (01) ==
LOC: EMR 23:03
DX: N83.202 Unspecified ovarian cyst, left side (principal); R10.84 Generalized abdominal pain; K80.80 Other cholelithiasis without obstruction; E78.5 Hyperlipidemia, unspecified
CPT/HCPCS: 36415; 76700; 76830; 76856; 80053; 81003; 81025; 83690; 85025; 85610; 85730; 96360; J7030; Z7502; 99284

== ENCOUNTER 2020-09-17 09:32 | Emergency (ER) | payer OTHER ==
[~2020-09-17] VITALS: Ht 165.1 cm; Wt 90.7 kg
[2020-09-17 10:00] VITALS: BP 110/79
[2020-09-17] MEDS ORDERED: Ketorolac 30mg Inj IV ONE (10:00)
[2020-09-17] MEDS ORDERED: Acetaminophen 500mg (ES) tab ORAL ONE (10:00)
--- NOTE | 2020-09-17 10:00 | NUR ---
ED Nurse Note: Pt ambulated to ED from d/t headaches that has been going on for a month, "shaking" and L forearm numbness/weakness/pain. Pt's AOx4, calm and cooperative to care; pt denies any dizziness nor any chest pain. Pt was placed on bed and gown; hooked to engine monitor, vss on ra, afebrile on triage.
[2020-09-17 10:03] LABS: APPEARANCE,URINE SLIGHTLY CLOUDY; BILIRUBIN, URINE NEGATIVE (NEGATIVE); EOSINOPHILS % (AUTO) 2.4 % (0.0-3.0); GLUCOSE, URINE (UA) NEGATIVE (NEGATIVE); HEMATOCRIT 39.6 % (37.0-47.0); HEMOGLOBIN 11.6 G/DL (12.0-16.0); KETONES,URINE 1+ (NEGATIVE); LEUKOCYTE ESTERASE ,URINE 2+ (NEGATIVE); LYMPHOCYTES % (AUTO) 37.4 % (20.0-45.0); MEAN CORPUSCULAR VOLUME 86 FL (80-99); MONOCYTES % (AUTO) 7.1 % (1.0-10.0); NEUTROPHILS % (AUTO) 52.1 % (45.0-75.0); NITRITE,URINE NEGATIVE (NEGATIVE); PH,URINE 6 (4.5-8.0); PLATELET COUNT 327 K/UL (150-450); PROTEIN,URINE 1+ (NEGATIVE); RED BLOOD COUNT 4.58 M/UL (4.20-5.40); UROBILINOGEN,URINE NORMAL MG/DL (0.0-1.0); WHITE BLOOD COUNT 9.4 K/UL (4.8-10.8)
[2020-09-17 10:09] LABS: COLOR,URINE YELLOW
[2020-09-17 10:20] LABS: ANION GAP 8 mmol/L (5-15); BLOOD UREA NITROGEN 9 mg/dL (7-18); CALCIUM 8.7 MG/DL (8.5-10.1); CARBON DIOXIDE 26 MMOL/L (21-32); CHLORIDE 107 MMOL/L (98-107); CREATININE 0.8 MG/DL (0.55-1.30); POTASSIUM 3.5 MMOL/L (3.5-5.1); SODIUM 141 MMOL/L (136-145)
--- NOTE | 2020-09-17 10:25 | NUR ---
ED Nurse Note: Pt was taken to CT.
[2020-09-17 10:33] LABS: ALANINE AMINOTRANSFERASE 50 U/L (12-78); ALBUMIN 3.7 G/DL (3.4-5.0); ALBUMIN/GLOBULIN RATIO 0.9 (1.0-2.7); ALKALINE PHOSPHATASE 116 U/L (46-116); ASPARTATE AMINO TRANSFERASE 28 U/L (15-37); BILIRUBIN,TOTAL 0.3 MG/DL (0.2-1.0)
--- NOTE | 2020-09-17 10:44 | NUR ---
ED Nurse Note: Pt returned from CT on stable condition.
--- NOTE | 2020-09-17 10:50 | Emergency Room Report ---
History of Present Illness General Chief Complaint: General Complaint Source: Patient Present Illness HPI 39-year-old female with history of depression, fibromyalgia, migraine headaches on Topamax and Wellbutrin here with left-sided arm numbness. Patient is also complaining of a generalized headache. Patient has seen her primary care physician many times for the symptoms. Patient says that the symptoms are on and off and that she has been suffering with them for several months. She says that she gets complex migraine headaches where she suffers from focal numbness and weakness with her symptoms. She also suffers from chronic abdominal discomfort and chronic chest tightness. She has seen her doctor for these symptoms many times and says that yesterday she had an appoint with her primary care physician who "did an EKG which was okay" and referred the patient to see gastroenterology, cardiology, neurology. Patient has not had a chance to follow-up with these specialists yet. She is here in the emergency department because of her headache and left arm weakness. She says that when she went to bed last night she had normal sensation but when she woke up this morning at approximately 6 AM, 4 hours prior to come to the emergency department she had left arm weakness distal to the left elbow. Upper arm is normal. No other focal numbness or weakness. No vision changes, fevers, chills, chest pain, palpitations, shortness of breath, back pain, abdominal pain, nausea, vomiting, diarrhea, dysuria. Allergies: Coded Allergies: No Known Allergies (Unverified , 11/21/18) COVID-19 Screening Contact w/high risk pt: No Experienced COVID-19 symptoms?: Yes COVID-19 Testing performed CORE RESCUER: No Patient History Last Menstrual Period: last month Now: No Nursing Documentation-[facility] Past Medical History: No History, Except For Hx Cardiac Problems: Yes - hyperlipidemia Hx Pacemaker: No Hx Asthma: No Hx COPD: No Hx Diabetes: No Hx Cancer: No Hx Gastrointestinal Problems: No - Gallstones Hx Dialysis: No Hx Neurological Problems: No - fibroids Hx Cerebrovascular Accident: No Hx Seizures: No Review of Systems All Other Systems: negative except mentioned in HPI Physical Exam Vital Signs Date Time Temp Pulse Resp B/P (MAP) Pulse Ox O2 Delivery O2 Flow Rate FiO2 09/17/20 09:35 97.5 76 18 110/79 (89) 97 Room Air Sp02 EP Interpretation: reviewed, normal General Appearance: no apparent distress, alert, non-toxic Head: normocephalic, atraumatic Eyes: bilateral eye normal inspection, bilateral eye PERRL ENT: hearing grossly normal, normal pharynx, no angioedema, normal voice Neck: full range of motion, supple/symm/no masses Respiratory: chest non-tender, lungs clear, normal breath sounds, speaking full sentences Cardiovascular #1: regular rate, rhythm, no edema Cardiovascular #2: 2+ carotid (R), 2+ carotid (L), 2+ radial (R), 2+ radial (L), 2+ dorsalis pedis (R), 2+ dorsalis pedis (L) Gastrointestinal: normal bowel sounds, non tender, soft, non-distended, no guarding, no rebound Rectal: deferred Genitourinary: normal inspection, no CVA tenderness Musculoskeletal: back normal, normal range of motion, calf tenderness, gait/station normal, non-tender Neurologic: alert, motor strength/tone normal, sensory intact, responsive, speech normal, other - In nature scale 1. Subjective numbness of the extensor aspect of her left forearm. Vascularly intact with normal pulses. No other neurologic abnormalities Psychiatric: judgement/insight normal, memory normal, mood/affect normal, no suicidal/homicidal ideation, other - Patient is anxious and tearful during examination Lymphatic: no adenopathy Medical Decision Making Diagnostic Impression: Primary Impression: Paresthesia and pain of left extremity Additional Impression: UTI (urinary tract infection) ER Course CLINICAL HISTORY: WEAK TECHNIQUE: Axial computed tomography images of the head/brain without intravenous contrast. CTDI is 53.40 mGy and DLP is 965.40 mGy-cm. One or more of the following dose reduction techniques were used: automated exposure control, adjustment of the mA and/or kV according to patient size, use of iterative reconstruction technique. COMPARISON: CT head 10/16/18, MRI brain 07/23/19 FINDINGS: Brain: Unremarkable. No hemorrhage. No significant white matter disease. No edema. Ventricles: Unremarkable. No ventriculomegaly. Bones/joints: Unremarkable. No acute fracture. Soft tissues: Unremarkable. Sinuses: Mild ethmoid sinus mucosal thickening. Mastoid air cells: Unremarkable as visualized. No mastoid effusion. IMPRESSION: No acute findings in the head/brain. TECHNIQUE: Axial computed tomography images of the cervical spine without intravenous contrast. CTDI is 20.20 mGy and DLP is 520.30 mGy-cm. One or more of the following dose reduction techniques were used: automated exposure control, adjustment of the mA and/or kV according to patient size, use of iterative reconstruction technique. COMPARISON: CT cervical spine, 12/19/05 FINDINGS: Vertebrae: Straightening of cervical spine may be positional versus muscle spasm. No acute fracture. No malalignment. Vertebral body heights are maintained. Discs/spinal canal/neural foramina: Mild degenerative disc disease with anterior osteophytes C4-C7. Mild posterior disc osteophytes at C4-5 and C5-6 without significant stenosis. Soft tissues: Unremarkable. IMPRESSION: 1. No acute fracture or malalignment. 2. Straightening of cervical spine may be positional versus muscle spasm. 3. Mild degenerative changes, progressive since prior study. Laboratory Tests Test 09/17/20 09:55 White Blood Count 9.4 K/UL (4.8-10.8) Red Blood Count 4.58 M/UL (4.20-5.40) Hemoglobin 11.6 G/DL (12.0-16.0) L Hematocrit 39.6 % (37.0-47.0) Mean Corpuscular Volume 86 FL (80-99) Mean Corpuscular Hemoglobin 25.3 PG (27.0-31.0) L Mean Corpuscular Hemoglobin Concent 29.3 G/DL (32.0-36.0) L Red Cell Distribution Width 19.0 % (11.6-14.8) H Platelet Count 327 K/UL (150-450) Mean Platelet Volume 7.0 FL (6.5-10.1) Neutrophils (%) (Auto) 52.1 % (45.0-75.0) Lymphocytes (%) (Auto) 37.4 % (20.0-45.0) Monocytes (%) (Auto) 7.1 % (1.0-10.0) Eosinophils (%) (Auto) 2.4 % (0.0-3.0) Basophils (%) (Auto) 1.0 % (0.0-2.0) Urine Color Yellow Urine Appearance Slightly cloudy Urine pH 6 (4.5-8.0) Urine Specific [place] 1.015 (1.005-1.035) Urine Protein 1+ (NEGATIVE) H Urine Glucose (UA) Negative (NEGATIVE) Urine Ketones 1+ (NEGATIVE) H Urine Blood Negative (NEGATIVE) Urine Nitrite Negative (NEGATIVE) Urine Bilirubin Negative (NEGATIVE) Urine Urobilinogen Normal MG/DL (0.0-1.0) Urine Leukocyte Esterase 2+ (NEGATIVE) H Urine RBC 0-2 /HPF (0 - 2) Urine WBC 15-20 /HPF (0 - 2) H Urine Squamous Epithelial Cells Many /LPF (NONE/OCC) H Urine Bacteria Moderate /HPF (NONE) H Urine Mucus Few /LPF (NONE/OCC) H Sodium Level 141 MMOL/L (136-145) Potassium Level 3.5 MMOL/L (3.5-5.1) Chloride Level 107 MMOL/L (98-107) Carbon Dioxide Level 26 MMOL/L (21-32) Anion Gap 8 mmol/L (5-15) Blood Urea Nitrogen 9 mg/dL (7-18) Creatinine 0.8 MG/DL (0.55-1.30) Estimated Glomerular Filtration Rate > 60 mL/min (>60) Glucose Level 97 MG/DL (74-106) Calcium Level 8.7 MG/DL (8.5-10.1) Total Bilirubin 0.3 MG/DL (0.2-1.0) Aspartate Amino Transferase (AST) 28 U/L (15-37) Alanine Aminotransferase (ALT) 50 U/L (12-78) Alkaline Phosphatase 116 U/L (46-116) Troponin I 0.000 ng/mL (0.000-0.056) Total Protein 7.9 G/DL (6.4-8.2) Albumin 3.7 G/DL (3.4-5.0) Globulin 4.2 g/dL Albumin/Globulin Ratio 0.9 (1.0-2.7) L Thyroid Stimulating Hormone (TSH) 2.925 uiU/mL (0.358-3.740) Free Thyroxine 0.64 NG/DL (0.76-1.46) L Urine Opiates Screen Negative (NEGATIVE) Urine Barbiturates Screen Negative (NEGATIVE) Phencyclidine (PCP) Screen Negative (NEGATIVE) Urine Amphetamines Screen Negative (NEGATIVE) Urine Benzodiazepines Screen Negative (NEGATIVE) Urine Cocaine Screen Negative (NEGATIVE) Urine Marijuana (THC) Screen Negative (NEGATIVE) . Rate 71 bpm EKG: NSR, no ischemia, intervals WNL. No ectopy. rate 71 bpm Rhythm strip: patient monitored for arrhythmias - no malignant dysrhythmias, runs of PVCs, nor pauses noted 39-year-old female here with left arm weakness and headache and generalized malaise. Patient was hemodynamically stable and neurovascular tact in the emergency department. She had numbness on the lateral aspect of her left forearm. When I reevaluate the patient intact on Guyon's canal in her left elbow she had worsening of her symptoms. Concerning for possible peripheral neuropathy secondary to ulnar tunnel syndrome. CT head and CT cervical spine unremarkable. She had no other neurologic symptoms and there is no concern at this time for a central process. Lab work largely unremarkable. Patient did have evidence of urinary tract infection. She was given a prescription for Macrobid and given information to follow-up with orthopedic surgery and neurology. Discharged in stable condition. Last Vital Signs Date Time Temp Pulse Resp B/P (MAP) Pulse Ox O2 Delivery O2 Flow Rate FiO2 09/17/20 10:00 76 18 Room Air 09/17/20 10:00 97.5 110/79 97 Scripts Nitrofurantoin Monohyd/M-Cryst* (MACROBID 100 MG*) 100 Mg Capsule 100 MG ORAL EVERY 12 HOURS for 7 Days, CAP Prov: Nino Helton M.D. 09/17/20 Referrals: [facility],REFERRING (PCP) Nino Helton M.D. Sep 17, 2020 10:49
--- NOTE | 2020-09-17 11:29 | Diagnostic Imaging Report ---
EXAM: CT Head Without Intravenous Contrast CLINICAL HISTORY: WEAK TECHNIQUE: Axial computed tomography images of the head/brain without intravenous contrast. CTDI is 53.40 mGy and DLP is 965.40 mGy-cm. One or more of the following dose reduction techniques were used: automated exposure control, adjustment of the mA and/or kV according to patient size, use of iterative reconstruction technique. COMPARISON: CT head 10/16/18, MRI brain 07/23/19 FINDINGS: Brain: Unremarkable. No hemorrhage. No significant white matter disease. No edema. Ventricles: Unremarkable. No ventriculomegaly. Bones/joints: Unremarkable. No acute fracture. Soft tissues: Unremarkable. Sinuses: Mild ethmoid sinus mucosal thickening. Mastoid air cells: Unremarkable as visualized. No mastoid effusion. IMPRESSION: No acute findings in the head/brain.
--- NOTE | 2020-09-17 11:33 | Diagnostic Imaging Report ---
EXAM: CT Cervical Spine Without Intravenous Contrast CLINICAL HISTORY: WEAK TECHNIQUE: Axial computed tomography images of the cervical spine without intravenous contrast. CTDI is 20.20 mGy and DLP is 520.30 mGy-cm. One or more of the following dose reduction techniques were used: automated exposure control, adjustment of the mA and/or kV according to patient size, use of iterative reconstruction technique. COMPARISON: CT cervical spine, 12/19/05 FINDINGS: Vertebrae: Straightening of cervical spine may be positional versus muscle spasm. No acute fracture. No malalignment. Vertebral body heights are maintained. Discs/spinal canal/neural foramina: Mild degenerative disc disease with anterior osteophytes C4-C7. Mild posterior disc osteophytes at C4-5 and C5-6 without significant stenosis. Soft tissues: Unremarkable. IMPRESSION: 1. No acute fracture or malalignment. 2. Straightening of cervical spine may be positional versus muscle spasm. 3. Mild degenerative changes, progressive since prior study.
[2020-09-17] MEDS ORDERED: NITROFURANTOIN100 M2 ORAL (11:38)
[2020-09-17 12:14] VITALS: BP 120/70
--- NOTE | 2020-09-19 16:41 | Cardiology Report ---
APPROVED REPORT EKG Measurement Heart [id number] <Conclusion> Normal sinus rhythm Normal ECG
== END 2020-09-17 12:24 | disposition home or self-care (01) ==
LOC: EMR 10:00
DX: R20.2 Paresthesia of skin (principal); M25.522 Pain in left elbow; E78.5 Hyperlipidemia, unspecified; N39.0 Urinary tract infection, site not specified
CPT/HCPCS: 36415; 70450; 72125; 80053; 80307; 81003; 84439; 84443; 84484; 85025; 87086; 93005; 96361; 96374; J1885; J7030; Z7502; 99284

== ENCOUNTER 2020-09-24 14:36 | Outpatient (CLI) | payer MEDICAID ==
[~2020-09-24] VITALS: Ht 162.6 cm; Wt 91.6 kg
[2020-09-24 14:47] VITALS: BP 136/86
== END 2020-09-24 16:36 | disposition home or self-care (01) ==
LOC: PAN 14:36
DX: R10.9 Unspecified abdominal pain (principal)
CPT/HCPCS: G0463

== ENCOUNTER 2020-10-29 17:46 | Emergency (ER) | payer MEDICAID, OTHER ==
[~2020-10-29] VITALS: Ht 165.1 cm; Wt 90.7 kg
[~2020-10-29 17:46] MED LIST changes: +OMEPRAZOLE20 M2 ORAL; +TOPIRAMATE25 MG ORAL; +WELLBUTRIN XL150 MG ORAL
[2020-10-29 18:00] VITALS: BP 141/84
--- NOTE | 2020-10-29 18:00 | NUR ---
ED Nurse Note: Pt walked in from home c/o dizziness and SOB x 1 hour. Pt has hx of asthma but does not take meds. Denies n/v/d. Respiratiions even and unlabored on room air. Vitals stable as documented. A+Ox4, speaking in complete sentences.
--- NOTE | 2020-10-29 19:10 | NUR ---
HAND-OFF: Report given to GRAYSON Shoemaker. Pt in stable condition; plan of care endorsed.
--- NOTE | 2020-10-29 19:20 | NUR ---
ED Nurse Note: Recived Care from [place].
[2020-10-29 19:28] VITALS: BP 135/86
--- NOTE | 2020-10-29 19:40 | NUR ---
ED Nurse Note: PT is resting comfortably, breathing is even and unlabored, vitals are stable as documented on RA.
[2020-10-29 19:47] LABS: APPEARANCE,URINE SLIGHTLY CLOUDY; BILIRUBIN, URINE NEGATIVE (NEGATIVE); COLOR,URINE PALE YELLOW; GLUCOSE, URINE (UA) NEGATIVE (NEGATIVE); KETONES,URINE NEGATIVE (NEGATIVE); LEUKOCYTE ESTERASE ,URINE 2+ (NEGATIVE); NITRITE,URINE NEGATIVE (NEGATIVE); PH,URINE 6.5 (4.5-8.0); PROTEIN,URINE NEGATIVE (NEGATIVE); UROBILINOGEN,URINE NORMAL MG/DL (0.0-1.0)
[2020-10-29 19:48] LABS: BASOPHILS % (AUTO) 1.2 % (0.0-2.0); EOSINOPHILS % (AUTO) 2.3 % (0.0-3.0); HEMOGLOBIN 11.2 G/DL (12.0-16.0); LYMPHOCYTES % (AUTO) 43.5 % (20.0-45.0); MEAN CORPUSCULAR VOLUME 83 FL (80-99); MONOCYTES % (AUTO) 7.9 % (1.0-10.0); NEUTROPHILS % (AUTO) 45.2 % (45.0-75.0); PLATELET COUNT 259 K/UL (150-450); RED BLOOD COUNT 4.24 M/UL (4.20-5.40); RED CELL DISTRIBUTION WIDTH 19.6 % (11.6-14.8); WHITE BLOOD COUNT 8.9 K/UL (4.8-10.8)
[2020-10-29 19:51] LABS: ANION GAP 5 mmol/L (5-15); BLOOD UREA NITROGEN 13 mg/dL (7-18); CALCIUM 8.7 MG/DL (8.5-10.1); CARBON DIOXIDE 28 MMOL/L (21-32); CHLORIDE 105 MMOL/L (98-107); CREATININE 0.7 MG/DL (0.55-1.30); POTASSIUM 3.6 MMOL/L (3.5-5.1); SODIUM 138 MMOL/L (136-145)
[2020-10-29 20:07] LABS: ALANINE AMINOTRANSFERASE 37 U/L (12-78); ALBUMIN 3.5 G/DL (3.4-5.0); ALBUMIN/GLOBULIN RATIO 0.9 (1.0-2.7); ALKALINE PHOSPHATASE 118 U/L (46-116); ASPARTATE AMINO TRANSFERASE 25 U/L (15-37); BILIRUBIN,TOTAL 0.2 MG/DL (0.2-1.0); CKMB 0.8 NG/ML (0.0-3.6); CREATINE KINASE 87 U/L (26-308); FERRITIN 8 NG/ML (8-388); LACTATE DEHYDROGENASE 140 U/L (81-234)
[2020-10-29] MEDS ORDERED: Omnipaque 350 100ml vial INJ PRN (20:45)
--- NOTE | 2020-10-29 21:19 | Diagnostic Imaging Report ---
EXAM: CT Angiography Chest With Intravenous Contrast CLINICAL HISTORY: Chest pain. PE TECHNIQUE: Axial computed tomographic angiography images of the chest with intravenous contrast. CTDI is 40.0 mGy and DLP is 375.8 mGy-cm. One or more of the following dose reduction techniques were used: automated exposure control, adjustment of the mA and/or kV according to patient size, use of iterative reconstruction technique. MIP reconstructed images were created and reviewed. COMPARISON: 01/16/2019. FINDINGS: Pulmonary arteries: No PE or aortic dissection. Aorta: No acute findings. No thoracic aortic dissection. Lungs: No focal consolidation. Pleural space: Unremarkable. No significant effusion. No pneumothorax. Heart: Unremarkable. Bones/joints: No acute fracture. Soft tissues: Unremarkable. Lymph nodes: Unremarkable. Gallbladder and bile ducts: Cholelithiasis. IMPRESSION: 1. No PE or aortic dissection. 2. No focal consolidation.
--- NOTE | 2020-10-29 21:25 | Emergency Room Report ---
History of Present Illness General Chief Complaint: Dizziness Source: Patient Present Illness HPI This patient states that about 2 hours prior to arrival, she was driving and she suddenly felt numbness in her tongue and then developed a rapid heart rate. She states that she felt short of breath and then when she got home she felt very lightheaded. She states that she did take her blood pressure and at first her blood pressure was very elevated. She states after that it dropped low. She states that 3 days ago she did start a new medication called gabapentin. She states she has a history of fibromyalgia, tendinitis and bipolar disorder. She was started on the gabapentin for anxiety and for "nerve pain." She states she also finished a course of Augmentin that she was put on for some swollen lymph nodes. She is not on any other medications. She denies fever or chills. She denies cough or congestion. She has no other complaints. 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 COVID-19 Screening: Negative COVID-19 COVID-19 Testing Source: clinic Patient History Past Medical History: see triage record, asthma, other - Bipolar, fibromyalgia Social History: Reports: alcohol use; Denies: smoking, drug use Reviewed Nursing Documentation: PMH: Agreed; PSxH: Agreed Nursing Documentation-PMH Hx Cardiac Problems: No Hx Pacemaker: No Hx Asthma: Yes Hx COPD: No Hx Diabetes: No Hx Cancer: No Hx Gastrointestinal Problems: Yes - [place] LIVER Hx Dialysis: No Hx Neurological Problems: No Hx Cerebrovascular Accident: No Hx Seizures: No Review of Systems All Other Systems: negative except mentioned in HPI Physical Exam Vital Signs Date Time Temp Pulse Resp B/P (MAP) Pulse Ox O2 Delivery O2 Flow Rate FiO2 10/29/20 17:57 98.4 89 19 137/91 (106) 98 Room Air Sp02 EP Interpretation: reviewed, normal General Appearance: no apparent distress, alert, GCS 15, non-toxic Head: normocephalic, atraumatic Eyes: bilateral eye normal inspection, bilateral eye PERRL ENT: hearing grossly normal, normal pharynx, no angioedema, normal voice Neck: normal inspection, full range of motion Respiratory: chest non-tender, lungs clear, normal breath sounds, no respiratory distress, no retraction, no accessory muscle use, speaking full sentences Cardiovascular #1: regular rate, rhythm, no edema Gastrointestinal: normal bowel sounds, non tender, soft, non-distended, no guarding, no rebound Rectal: deferred Musculoskeletal: back normal, normal range of motion, gait/station normal, non- tender Neurologic: alert, motor strength/tone normal, oriented x3, sensory intact, responsive, speech normal Psychiatric: judgement/insight normal, memory normal, mood/affect normal, no suicidal/homicidal ideation Skin: no rash, normal color Medical Decision Making Diagnostic Impression: Primary Impression: Palpitations ER Course I believe the patient symptoms are multifactorial. The patient has stopped Wellbutrin and Topamax. She has started gabapentin. I did do a Covid work-up and a cardiac work-up. The patient did have an elevated D-dimer. I also saw that last month she had been evaluated and her D-dimer was elevated at that time also. Therefore, I felt I should obtain a CT of the chest to rule out PE given the patient's symptoms. CT of the chest was unremarkable. The patient overall is well-appearing and nontoxic. On physical exam, the patient is not hypotensive, has no findings of CHF, and no significant cardiac murmur suggestive of valvular heart disease or cardiac outflow obstruction. The patient reports no history of seizure or head trauma. EKG showed no evidence of concerning findings of QT prolongation, Brugada syndrome or significant ST changes suggestive of acute ischemia, dysrhythmias or significant conduction abnormalities. On laboratory evaluation, blood sugar was normal and the patient is not anemic. I believe the patient is stable for discharge to followup with her PMD for further workup. Laboratory Tests Test 10/29/20 18:50 10/29/20 19:25 White Blood Count 8.9 K/UL (4.8-10.8) Red Blood Count 4.24 M/UL (4.20-5.40) Hemoglobin 11.2 G/DL (12.0-16.0) L Hematocrit 35.0 % (37.0-47.0) L Mean Corpuscular Volume 83 FL (80-99) Mean Corpuscular Hemoglobin 26.3 PG (27.0-31.0) L Mean Corpuscular Hemoglobin Concent 31.9 G/DL (32.0-36.0) L Red Cell Distribution Width 19.6 % (11.6-14.8) H Platelet Count 259 K/UL (150-450) Mean Platelet Volume 6.9 FL (6.5-10.1) Neutrophils (%) (Auto) 45.2 % (45.0-75.0) Lymphocytes (%) (Auto) 43.5 % (20.0-45.0) Monocytes (%) (Auto) 7.9 % (1.0-10.0) Eosinophils (%) (Auto) 2.3 % (0.0-3.0) Basophils (%) (Auto) 1.2 % (0.0-2.0) Prothrombin Time 11.0 SEC (9.30-11.50) Prothrombin Time INR 1.0 (0.9-1.1) Activated Partial Thromboplast Time 27 SEC (23-33) D-Dimer 0.70 mg/L FEU (0.00-0.49) H Urine Color Pale yellow Urine Appearance Slightly cloudy Urine pH 6.5 (4.5-8.0) Urine Specific [place] 1.015 (1.005-1.035) Urine Protein Negative (NEGATIVE) Urine Glucose (UA) Negative (NEGATIVE) Urine Ketones Negative (NEGATIVE) Urine Blood Negative (NEGATIVE) Urine Nitrite Negative (NEGATIVE) Urine Bilirubin Negative (NEGATIVE) Urine Urobilinogen Normal MG/DL (0.0-1.0) Urine Leukocyte Esterase 2+ (NEGATIVE) H Urine RBC 0-2 /HPF (0 - 2) Urine WBC 2-4 /HPF (0 - 2) Urine Squamous Epithelial Cells Many /LPF (NONE/OCC) H Urine Bacteria Few /HPF (NONE) Sodium Level 138 MMOL/L (136-145) Potassium Level 3.6 MMOL/L (3.5-5.1) Chloride Level 105 MMOL/L (98-107) Carbon Dioxide Level 28 MMOL/L (21-32) Anion Gap 5 mmol/L (5-15) Blood Urea Nitrogen 13 mg/dL (7-18) Creatinine 0.7 MG/DL (0.55-1.30) Estimated Glomerular Filtration Rate > 60 mL/min (>60) Glucose Level 98 MG/DL (74-106) Calcium Level 8.7 MG/DL (8.5-10.1) Ferritin 8 NG/ML (8-388) Total Bilirubin 0.2 MG/DL (0.2-1.0) Aspartate Amino Transferase (AST) 25 U/L (15-37) Alanine Aminotransferase (ALT) 37 U/L (12-78) Alkaline Phosphatase 118 U/L (46-116) H Lactate Dehydrogenase 140 U/L (81-234) Total Creatine Kinase 87 U/L (26-308) Creatine Kinase MB 0.8 NG/ML (0.0-3.6) Creatine Kinase MB Relative Index 0.9 Troponin I 0.004 ng/mL (0.000-0.056) C-Reactive Protein, Quantitative 0.9 mg/dL (0.00-0.90) Pro-B-Type Natriuretic Peptide 15 pg/mL (0-125) Total Protein 7.4 G/DL (6.4-8.2) Albumin 3.5 G/DL (3.4-5.0) Globulin 3.9 g/dL Albumin/Globulin Ratio 0.9 (1.0-2.7) L Lipase 318 U/L (73-393) Lactic Acid Level 1.10 mmol/L (0.4-2.0) Microbiology Date/Time Source Procedure Growth Status 10/29/20 19:25 Nasopharynx SARS-CoV-2 RdRp Gene Assay - Final Complete EKG Diagnostic Results Troponin ordered: Yes Rate: normal Rhythm: NSR ST Segments: no acute changes Rhythm Strip Diag. Results EP Interpretation: yes Rate: 80's Rhythm: NSR, no PVC's, no ectopy CT/MRI/US Diagnostic Results CT/MRI/US Diagnostic Results : Imaging Test Ordered: CT Chest Impression No acute findings. See official report in the electronic medical record. Last Vital Signs Date Time Temp Pulse Resp B/P (MAP) Pulse Ox O2 Delivery O2 Flow Rate FiO2 10/29/20 19:28 98.4 80 18 135/86 99 Room Air Status: improved Disposition: HOME, SELF-CARE Condition: Improved Referrals: [facility],REFERRING (PCP) Patient Instructions: Amy Lan DO Oct 29, 2020 21:25
[2020-10-29 22:12] VITALS: BP 120/66
--- NOTE | 2020-10-29 22:13 | NUR ---
ED Nurse Note: Pt is resting comfortably, breathing is even and unlabored, she is using her cell phone at this time. She is speaking in full and complete sentances.
[2020-10-29 22:52] VITALS: BP 119/72
--- NOTE | 2020-10-29 22:53 | NUR ---
ER DISCHARGE NOTE: Patient is cleared to be discharged per ERMD, pt is aox4, on room air, with stable vital signs. pt was given dc instructions, pt was able to verbalize understanding, pt id band and iv site removed without complications. pt is able to ambulate with steady gait. pt took all belongings. Pt left via private car.
--- NOTE | 2020-10-30 16:48 | Diagnostic Imaging Report ---
Indication: Shortness of breath Technique: One view of the chest Comparison: none Findings: Lungs and pleural spaces are clear. Heart size is normal. No significant change Impression: No acute process
== END 2020-10-29 22:48 | disposition home or self-care (01) ==
LOC: EMR 18:43
DX: R00.2 Palpitations (principal); J45.909 Unspecified asthma, uncomplicated
CPT/HCPCS: 36415; 71045; 71275; 80053; 81003; 82550; 82553; 82728; 83605; 83615; 83690; 83880; 84484; 85025; 85379; 85610; 85730; 86140; 93005; Q9967; U0002; Z7502; 99284